=== PATIENT | female | born 1995 | race Caucasian/White ===

== ENCOUNTER 2018-08-12 01:11 | Emergency (ER) | payer BC, OTHER ==
[~2018-08-12] VITALS: Ht 175.3 cm; Wt 72.6 kg
--- OUTSIDE RECORDS SUMMARY | 2018-08-12 01:17 | XMS REPORT ---
Author Author BRYCE MARTINO Organization [employer] Address Unknown Phone Unavailable Care Team Providers Care Lockstitch Back Maker Name Role Phone BRYCE MARTINO CP Unavailable Allergies, Adverse Reactions, Alerts Substance Reaction Event Type N.K.D.A. Info Not Available Non Drug Allergy Problems Problem Type Condition Code Onset Dates Condition Status Problem Screening examination for pulmonary tuberculosis V74.1 Active Problem Viral warts, unspecified 078.10 Active Problem Health examination of defined subpopulation V70.5 Active Assessment Syncope, unspecified syncope type R55 Active Assessment Viral wart, unspecified B07.9 Active Medications Medication Code System Code Instructions Start Date End Date Status Dosage Ibuprofen [facility] [address]-97 200 MG Orally every 6 hrs 1 tablet as needed Tylenol PM Extra Strength [facility] [address]-68 500-25 MG Orally Once a day 1 tablet at bedtime as needed Procedures Procedure Coding System Code Date Office Visit, Est Pt., Level 3 CPT-4 90867 Jun 14, 2015 CRYOTHERAPY OF SKIN CPT-4 48685 Jun 14, 2015 ELECTROCARDIOGRAM, TRACING CPT-4 72195 Jun 14, 2015 Vital Signs Date/Time: Jun 14, 2015 Temperature 98.4 F Weight 149.6 lbs Height 69.4 in BMI 21.84 Index Blood Pressure Diastolic 60 mmHg Blood Pressure Systolic 112 mmHg Cardiac Monitoring Heart Rate 98 bpm Results Name Result Date Reference Range Unit Abnormality Flag CRYOTHERAPY OF SKIN Summary Purpose [employer] Submission
--- OUTSIDE RECORDS SUMMARY | 2018-08-12 01:17 | XMS REPORT ---
Author Author BRYCE MARTINO [facility] [employer] Address Unknown Phone Unavailable Care Team Providers Care Warehouse Associate Name Role Phone BRYCE MARTINO CP Unavailable Allergies, Adverse Reactions, Alerts Substance Reaction Event Type N.K.D.A. Info Not Available Non Drug Allergy Problems Problem Type Condition Code Onset Dates Condition Status Problem Screening examination for pulmonary tuberculosis V74.1 Active Problem Viral warts, unspecified 078.10 Active Problem Health examination of defined subpopulation V70.5 Active Assessment Pre-syncope 780.2 Active Assessment Daily headache 784.0 Active Medications Medication Code System Code Instructions Start Date End Date Status Dosage Tylenol PM Extra Strength [facility] [address]-94 500-25 MG Orally Once a day 1 tablet at bedtime as needed Ibuprofen [facility] [address]-06 200 MG Orally every 6 hrs 1 tablet as needed Procedures Procedure Coding System Code Date COMPREHEN METABOLIC PANEL CPT-4 10314 Apr 26, 2015 ASSAY THYROID STIM HORMONE CPT-4 28933 Apr 26, 2015 COMPLETE CBC W/AUTO DIFF WBC CPT-4 19901 Apr 26, 2015 Office Visit, Est Pt., Level 4 CPT-4 83836 Apr 26, 2015 VENIPUNCT, ROUTINE* CPT-4 29088 Apr 26, 2015 Vital Signs Date/Time: Apr 26, 2015 Temperature 99.2 F BMIPercentile 49.92 % Weight 148.7 lbs Height 69.4 in BMI 21.70 Index Blood Pressure Diastolic 78 mmHg Blood Pressure Systolic 118 mmHg Cardiac Monitoring Heart Rate 100 bpm Wt Percentile 78.7 % Ht Percentile 97.77 % Results Name Result Date Reference Range Unit Abnormality Flag CBC ROUTINE VENIPUNCTURE TSH ----TSH 1.210 [id number] 0.450-4.500 uIU/mL Summary Purpose eClinicalWorks Submission
--- OUTSIDE RECORDS SUMMARY | 2018-08-12 01:17 | XMS REPORT ---
Author Author SHANEANNELASHANDA Organization [facility] Address [address] [place] [address] Care Team Providers Care Waste Duster Name Role Phone LYNNLASHANDA Nayak Unavailable PROBLEMS Type Condition ICD9-CM Code LNF26-YU Code Onset Dates Condition Status SNOMED Code Problem Viral warts, unspecified 078.10 Active 58574123 Problem Health examination of defined subpopulation V70.5 Active 714307566 Problem Screening examination for pulmonary tuberculosis V74.1 Active 491951578 Problem Vasodepressor syncope R55 Active 657910063 ALLERGIES No Known Allergies ENCOUNTERS Encounter Location Date Diagnosis [place] [id number] [address] Dec, Common wart B07.8 [facility] [address] [id number] [place] [address]3054[address]236 Aug, Impacted cerumen of both ears H61.23 ; Viral wart on finger B07.9 and Cough R05 [facility] [id number] [place] [address] Jul, [facility] [id number] [place] [address]74[address] Jun, Sore throat J02.9 and Strep pharyngitis J02.0 [facility] [address] [address] Feb, Common wart B07.8 [facility] [id number] [place] [address] 12545- 7793 Dec, [facility] [id number] [place] [address] 88027- 4667 08 Oct, 2015 Syncope R55 ; Headache R51 and Dizziness R42 [place] [address] [id number] [place] [address] 99896- 9229 Aug, Syncope R55 [place] [address] [place] [id number] [place] [address] 80743- 0932 Aug, Syncopal episodes R55 [place] [address] [id number] [place] [address] 98710- 8990 May, Viral warts, unspecified type B07.9 [place] [address] [address] [id number] [place] [address] 57252- 8360 May, Syncope, unspecified syncope type R55 and Viral wart, unspecified B07.9 [place] [address] [id number] [place] [address] 17294- 0671 Mar, Pre-syncope 780.2 and Daily headache 784.0 [place] [address] [address] Jan, Viral warts, unspecified 078.10 [place] [address] [id number] [place] [address] 85669- 4561 Oct, [place] [address] [place] [id number] [place] [address] 80851- 7954 Oct, [place] [address] [place] [id number] [place] [address] 15460- 2661 Jan, [place] [address] [id number] [place] [address] 12758- 2390 Jan, [place] [address] [place] [id number] [place] [address] 86951- 1855 Dec, [place] [address] [address] [id number] [place] [address] 67879- 4046 Dec, IMMUNIZATIONS No Known Immunizations SOCIAL HISTORY Never Assessed REASON FOR VISIT Wart removal: left middle finger clark dahl, Had flu 2 weeks ago, ongoing cough and ear fullness reported PLAN OF CARE Activity Details Follow Up prn Reason: VITAL SIGNS Height 69.4 in 2017-09-24 Weight 160 lbs 2017-09-24 Temperature 97.1 degrees Fahrenheit 2017-09-24 Heart Rate 72 bpm 2017-09-24 Respiratory Rate 18 2017-09-24 BMI 23.35 kg/m2 2017-09-24 Blood pressure systolic 122 mmHg 2017-09-24 Blood pressure diastolic 60 mmHg 2017-09-24 MEDICATIONS Unknown Medications RESULTS No Results PROCEDURES Procedure Date Ordered Result Body Site EAR LAVAGE 2017-09-24 N/A CRYOTHERAPY OF SKIN 2017-09-24 N/A CRYOTHERAPY OF SKIN Sep 24, 2017 INSTRUCTIONS MEDICATIONS ADMINISTERED No Known Medications MEDICAL (GENERAL) HISTORY Type Description Date Medical History asthma-exercise induced, not formally dx'd Medical History Vasodepressor syncope Surgical History Left knee scope
--- OUTSIDE RECORDS SUMMARY | 2018-08-12 01:17 | XMS REPORT ---
Author Author SUMIT SAHNI Organization [facility] Address [address] [place] [address] Care Team Providers Care Jewel Oliving Machine Operator Name Role Phone SUMIT SAHNI Unavailable PROBLEMS Type Condition ICD9-CM Code NST50-MJ Code Onset Dates Condition Status SNOMED Code Problem Viral warts, unspecified 078.10 Active 77740817 Problem Health examination of defined subpopulation V70.5 Active 702281575 Problem Screening examination for pulmonary tuberculosis V74.1 Active 256449807 Problem Vasodepressor syncope R55 Active 212103515 ALLERGIES No Known Allergies ENCOUNTERS Encounter Location Date Diagnosis [address] [address] Dec, Common wart B07.8 [place] [id number] [place] [address]34[address] Aug, Impacted cerumen of both ears H61.23 ; Viral wart on finger B07.9 and Cough R05 [facility] [id number] [place] [address] Jul, [facility] [id number] [place] [address] 45139 -6464 Jun, Sore throat J02.9 and Strep pharyngitis J02.0 [place] [id number] [place] [address] 58862- 3660 Feb, Common wart B07.8 [place] [id number] [place] [address] 71199- 5931 Dec, [place] [id number] [place] [address] 58726- 9862 Oct, Syncope R55 ; Headache R51 and Dizziness R42 [place] [address] [address] Aug, Syncope R55 [facility] [address] [place] [id number] [place] [address] 37466- 1385 Aug, Syncopal episodes R55 [place] [address] [place] [id number] [place] [address] 76773- 7986 May, Viral warts, unspecified type B07.9 [place] [address] [place] [id number] [place] [address] 03504- 2565 May, Syncope, unspecified syncope type R55 and Viral wart, unspecified B07.9 [place] [address] [place] [id number] [place] [address] 08300- 2367 Mar, Pre-syncope 780.2 and Daily headache 784.0 [place] [address] [place] [id number] [place] [address] 42115- 8[address] Jan, Viral warts, unspecified 078.10 [place] [address] [place] [id number] [place] [address] 48343- 4644 Oct, [place] [address] [place] [id number] [place] [address] 18424- 7623 Oct, [place] [address] [place] [id number] [place] [address] 40481- 0850 Jan, [place] [address] [place] [id number] [place] [address] 33973- 1620 Jan, [place] [address] [place] [address] 09053- 7948 Dec, [place] [address] [place] [id number] [place] [address] 15461- 5936 Dec, IMMUNIZATIONS No Known Immunizations SOCIAL HISTORY Never Assessed REASON FOR VISIT Wart assessment, [facility] OF CARE VITAL SIGNS Height 69.4 in 2018-01-14 Weight 165.0 lbs 2018-01-14 Temperature 97.8 degrees Fahrenheit 2018-01-14 Heart Rate 76 bpm 2018-01-14 Respiratory Rate 18 2018-01-14 BMI 24.08 kg/m2 2018-01-14 Blood pressure systolic 106 mmHg 2018-01-14 Blood pressure diastolic 72 mmHg 2018-01-14 MEDICATIONS Unknown Medications RESULTS No Results PROCEDURES No Known procedures INSTRUCTIONS MEDICATIONS ADMINISTERED No Known Medications MEDICAL (GENERAL) HISTORY Type Description Date Medical History asthma-exercise induced, not formally dx'd Medical History Vasodepressor syncope Surgical History Left knee scope
--- OUTSIDE RECORDS SUMMARY | 2018-08-12 01:17 | XMS REPORT ---
Author Author BRYCE MARTINO Organization [employer] Address Unknown Phone Unavailable Care Team Providers Care Upper Shaper Name Role Phone BRYCE MARTINO CP Unavailable Allergies, Adverse Reactions, Alerts Substance Reaction Event Type N.K.D.A. Info Not Available Non Drug Allergy Problems Problem Type Condition Code Onset Dates Condition Status Problem Screening examination for pulmonary tuberculosis V74.1 Active Problem Viral warts, unspecified 078.10 Active Problem Health examination of defined subpopulation V70.5 Active Assessment Viral warts, unspecified type B07.9 Active Medications Medication Code System Code Instructions Start Date End Date Status Dosage Tylenol PM Extra Strength [facility] [address]-18 500-25 MG Orally Once a day 1 tablet at bedtime as needed Ibuprofen [facility] [address]-03 200 MG Orally every 6 hrs 1 tablet as needed Procedures Procedure Coding System Code Date No Charge CPT-4 33130 Jun 23, 2015 CRYOTHERAPY OF SKIN CPT-4 36507 Jun 23, 2015 Vital Signs Date/Time: Jun 23, 2015 Temperature 98.1 F Weight 149.8 lbs Height 69.4 in BMI 21.86 Index Blood Pressure Diastolic 66 mmHg Blood Pressure Systolic 108 mmHg Cardiac Monitoring Heart Rate 88 bpm Results Name Result Date Reference Range Unit Abnormality Flag CRYOTHERAPY OF SKIN Summary Purpose eClinicalWorks Submission
--- OUTSIDE RECORDS SUMMARY | 2018-08-12 01:17 | XMS REPORT ---
Author Author BOB UNGER Organization [facility] Address [address] [place] [address] Care Team Providers Care Knot Tier Name Role Phone BOB UNGER Unavailable PROBLEMS Type Condition ICD9-CM Code IIK93-HP Code Onset Dates Condition Status SNOMED Code Problem Vasodepressor syncope R55 Active 286847709 ALLERGIES No Known Allergies ENCOUNTERS Encounter Location Date Diagnosis [place] [address] [address] Jun, [place] [address] [address] May, Encounter for weight management Z76.89 [place] [address] [address] Dec, Common wart B07.8 [place] [address] [address] Aug, Impacted cerumen of both ears H61.23 ; Viral wart on finger B07.9 and Cough R05 [facility] [id number] [place] [address] Jul, [facility] [id number] [place] [address] 94336 [address]3295 Jun, Sore throat J02.9 and Strep pharyngitis J02.0 [place] [address] [address]- [address] Feb, Common wart B07.8 [place] [address] [place] [id number] [place] [address] 56225- 1312 Dec, [place] [address] [place] [address] [place] [address] 08 Oct, 2015 Syncope R55 ; Headache R51 and Dizziness R42 [facility] [address] [address] Aug, Syncope R55 [facility] [address] [id number] [place] [address] 38885- 2606 Aug, Syncopal episodes R55 [facility] [address] [address] May, Viral warts, unspecified type B07.9 [place] [address] 398[address]- [address] May, Syncope, unspecified syncope type R55 and Viral wart, unspecified B07.9 [facility] [address] [place] [id number] [place] [address] 23306- 7854 Mar, Pre-syncope 780.2 and Daily headache 784.0 [facility] [address] [place] [id number] [place] [address] 64140- 7382 Jan, Viral warts, unspecified 078.10 [facility] [address] [place] [id number] [place] [address] 62466- 5604 Oct, [facility] [address] [place] [id number] [place] [address] 816[address]- 7900 Oct, [facility] [address] [place] [id number] [place] [address]- 2604 Jan, [facility] [id number] [place] [address] 44822- 5431 Jan, [facility] [id number] [place] [address] 44506- 1511 Dec, [facility] [address] [place] [id number] [place] [address] 06047- 7662 Dec, IMMUNIZATIONS No Known Immunizations SOCIAL HISTORY Never Assessed REASON FOR VISIT weight concerns-LAUREN croft, pt has some concerns about why she is gaining weight so much and fast PLAN OF CARE Activity Details Follow Up prn Reason: VITAL SIGNS Height 69.4 in 2018-06-27 Weight 168.7 lbs 2018-06-27 Temperature 98.3 degrees Fahrenheit 2018-06-27 Heart Rate 114 bpm 2018-06-27 Respiratory Rate 18 2018-06-27 Oximetry on room air:100 % 2018-06-27 BMI 24.62 kg/m2 2018-06-27 Blood pressure systolic 124 mmHg 2018-06-27 Blood pressure diastolic 80 mmHg 2018-06-27 MEDICATIONS Medication Instructions Dosage Frequency Start Date End Date Duration Status Phentermine HCl 30 MG Orally Once a day 1 capsule 24h May, 28 days Active RESULTS No Results PROCEDURES No Known procedures INSTRUCTIONS MEDICATIONS ADMINISTERED No Known Medications MEDICAL (GENERAL) HISTORY Type Description Date Medical History asthma-exercise induced, not formally dx'd Medical History Vasodepressor syncope Surgical History Left knee scope Hospitalization History No Hospitalization history information
--- OUTSIDE RECORDS SUMMARY | 2018-08-12 01:17 | XMS REPORT ---
Author SUMIT Anderson Organization [employer] Address Unknown Phone Unavailable Care Team Providers Care Hazardous Materials Waste Technician Name Role Phone SUMIT SAHNI CP Unavailable Allergies, Adverse Reactions, Alerts Substance Reaction Event Type N.K.D.A. Info Not Available Non Drug Allergy Problems Problem Type Condition Code Onset Dates Condition Status Problem Screening examination for pulmonary tuberculosis V74.1 Active Problem Viral warts, unspecified 078.10 Active Problem Health examination of defined subpopulation V70.5 Active Problem Vasodepressor syncope R55 Active Assessment Common wart B07.8 Active Medications No Known Medications Procedures Procedure Coding System Code Date Office Visit, Est Pt., Level 2 CPT-4 02922 Mar 07, 2016 DESTRUCT LESION, 1-14 CPT-4 47196 Mar 07, 2016 Vital Signs Date/Time: Mar 07, 2016 Cardiac Monitoring Heart Rate 88 bpm Weight 152.3 lbs Height 69.4 in BMI 22.23 Index Blood Pressure Diastolic 68 mmHg Blood Pressure Systolic 112 mmHg Results No Known Results Summary Purpose eClinicalWorks Submission
--- OUTSIDE RECORDS SUMMARY | 2018-08-12 01:17 | XMS REPORT ---
Author Author CARLOS WILKES [facility] Address [address] [place] [address] Care Team Providers Care Cosmetic Counselor Name Role Phone CHUNG CARLOS Unavailable PROBLEMS Type Condition ICD9-CM Code HUE94-AE Code Onset Dates Condition Status SNOMED Code Problem Viral warts, unspecified 078.10 Active 58606161 Problem Health examination of defined subpopulation V70.5 Active 663898776 Problem Screening examination for pulmonary tuberculosis V74.1 Active 013242005 Problem Vasodepressor syncope R55 Active 819916699 ALLERGIES No Known Allergies ENCOUNTERS Encounter Location Date Diagnosis [address] [address] Dec, Common wart B07.8 [place] [id number] [place] [address]37- [address]12 Aug, Impacted cerumen of both ears H61.23 ; Viral wart on finger B07.9 and Cough R05 [facility] [id number] [place] [address]181 -[phone] Jul, [facility] [address] [id number] [place] [address] 59003 -8314 Jun, Sore throat J02.9 and Strep pharyngitis J02.0 [facility] [address] [place] [id number] [place] [address] 62628- 1836 Feb, Common wart B07.8 [place] [address] [place] [id number] [place] [address] 86653- 3209 Dec, [place] [address] [place] [id number] [place] [address] 29198- 6133 Oct, Syncope R55 ; Headache R51 and Dizziness R42 [place] [address] [place] [address] 50561- 7609 Aug, Syncope R55 [place] [address] [place] [id number] [place] [address] 36056- 2361 Aug, Syncopal episodes R55 [place] [address] [place] [id number] [place] [address] 44046- 0653 May, Viral warts, unspecified type B07.9 [place] [address] [place] [id number] [place] [address] 66436- 3845 May, Syncope, unspecified syncope type R55 and Viral wart, unspecified B07.9 [place] [address] [place] [id number] [place] [address] 84409- 2105 Mar, Pre-syncope 780.2 and Daily headache 784.0 [place] [address] [place] [id number] [place] [address] 21628- 9518 Jan, Viral warts, unspecified 078.10 [place] [address] [place] [id number] [place] [address] 73166- 0798 Oct, [place] [address] [place] [id number] [place] [address] 73620- 3614 Oct, [place] [address] [place] [id number] [place] [address] 75402- 9582 Jan, [place] [address] [place] [id number] [place] [address] 68767- 7276 Jan, [place] [address] [place] [address] 44454- 3810 Dec, [place] [address] [place] [id number] [place] [address] 82141- 9785 Dec, IMMUNIZATIONS No Known Immunizations SOCIAL HISTORY Never Assessed REASON FOR VISIT flu symptoms- cough and chills for a few days Dominique, Instructed to alternate tyl/ibu and increase fluids PLAN OF CARE VITAL SIGNS Height 69.4 in 2017-08-21 Weight 156.6 lbs 2017-08-21 Temperature 98.6 degrees Fahrenheit 2017-08-21 Heart Rate 74 bpm 2017-08-21 Respiratory Rate 18 2017-08-21 BMI 22.86 kg/m2 2017-08-21 Blood pressure systolic 126 mmHg 2017-08-21 Blood pressure diastolic 80 mmHg 2017-08-21 MEDICATIONS Unknown Medications RESULTS No Results PROCEDURES No Known procedures INSTRUCTIONS MEDICATIONS ADMINISTERED No Known Medications MEDICAL (GENERAL) HISTORY Type Description Date Medical History asthma-exercise induced, not formally dx'd Medical History Vasodepressor syncope Surgical History Left knee scope
--- OUTSIDE RECORDS SUMMARY | 2018-08-12 01:18 | XMS REPORT | Continuity of Care Document ---
Author Author [facility] Address Unknown Phone Unavailable Allergies Active Description Code Type Severity Reaction Onset Reported/Identified Relationship to Patient Clinical Status Yes No Known Drug Allergies [id number] Drug Allergy Unknown N/A 10/10/2010 Medications There is no data. Problems Date Dx Coded Attending Type Code Diagnosis Diagnosed By 02/18/2009 CARLOS WILKES DO 493.90 ASTHMA EXERCISE-INDUCED 02/18/2009 CARLOS WILKES DO 706.3 SEBORRHEA 02/18/2009 CARLOS WILKES DO V20.2 visit for: well child visit 02/18/2009 CARLOS WILKES DO 493.90 ASTHMA EXERCISE-INDUCED 02/18/2009 CARLOS WILKES DO 706.3 SEBORRHEA 02/18/2009 CARLOS WILKES DO V20.2 visit for: well child visit 10/10/2010 Ot 717.6 LOOSE BODY IN KNEE 01/05/2014 CARLOS WILKES DO V70.5 HEALTH EXAMINATION OF DEFINED SUBPOPULATIONS 01/05/2014 CARLOS WILKES DO V74.1 TB SCREENING 01/05/2014 CARLOS WILKES DO V70.5 HEALTH EXAMINATION OF DEFINED SUBPOPULATIONS 01/05/2014 CARLOS WILKES DO V74.1 TB SCREENING 02/24/2014 CARLOS WILKES DO 078.10 VIRAL WARTS UNSPECIFIED 07/16/2015 Ot G44.52 09/28/2015 Ot 719.06 09/28/2015 Ot 717.6 09/28/2015 Ot V72.83 09/28/2015 Ot V74.8 09/28/2015 Ot 786.2 09/28/2015 Ot G44.52 11/03/2015 Ot G44.52 11/11/2015 YASMIN RIVAS MD Ot R42 11/11/2015 YASMIN RIVAS MD Ot R55 11/12/2015 YASMIN RIVAS MD Ot R42 DIZZINESS AND GIDDINESS 11/12/2015 YASMIN RIVAS MD Ot R55 SYNCOPE AND COLLAPSE 12/01/2015 YASMIN RIVAS MD Ot R42 DIZZINESS AND GIDDINESS 12/01/2015 YASMIN RIVAS MD Ot R55 SYNCOPE AND COLLAPSE 12/03/2015 Ot 719.06 JOINT EFFUSION-L/LEG 12/03/2015 Ot 717.6 LOOSE BODY IN KNEE 12/03/2015 Ot V72.83 EXAM PRE- OPERATIVE NEC 12/03/2015 Ot V74.8 SCREEN- BACTERIAL DIS NEC 12/03/2015 Ot 786.2 COUGH 12/03/2015 Ot G44.52 NEW DAILY PERSISTENT HEADACHE (NDPH) 12/03/2015 BRYCE MARTINO Ot R55 SYNCOPE AND COLLAPSE 12/03/2015 YASMIN RIVAS MD Ot R42 DIZZINESS AND GIDDINESS 12/03/2015 YASMIN RIVAS MD Ot R55 SYNCOPE AND COLLAPSE 12/03/2015 YASMIN RIVAS MD Ot R42 DIZZINESS AND GIDDINESS 12/03/2015 YASMIN RIVAS MD Ot R55 SYNCOPE AND COLLAPSE 12/03/2015 YASMIN RIVAS MD Ot R42 DIZZINESS AND GIDDINESS 12/03/2015 YASMIN RIVAS MD Ot R55 SYNCOPE AND COLLAPSE 12/03/2015 Ot 719.06 JOINT EFFUSION-L/LEG 12/03/2015 Ot 717.6 LOOSE BODY IN KNEE 12/03/2015 Ot V72.83 EXAM PRE- OPERATIVE NEC 12/03/2015 Ot V74.8 SCREEN- BACTERIAL DIS NEC 12/03/2015 Ot 786.2 COUGH 12/03/2015 Ot G44.52 NEW DAILY PERSISTENT HEADACHE (NDPH) 12/03/2015 BRYCE MARTINO Ot R55 SYNCOPE AND COLLAPSE 12/03/2015 YASMIN RIVAS MD Ot R42 DIZZINESS AND GIDDINESS 12/03/2015 YASMIN RIVAS MD Ot R55 SYNCOPE AND COLLAPSE 12/03/2015 YASMIN RIVAS MD Ot R42 DIZZINESS AND GIDDINESS 12/03/2015 YASMIN RIVAS MD Ot R55 SYNCOPE AND COLLAPSE 12/03/2015 BRYCE MARTINO Ot R55 SYNCOPE AND COLLAPSE 12/09/2015 YASMIN RIVAS MD Ot R42 DIZZINESS AND GIDDINESS 12/09/2015 YASMIN RIVAS MD Ot R55 SYNCOPE AND COLLAPSE 12/29/2015 BRYCE MARTINO Ot R55 SYNCOPE AND COLLAPSE 01/11/2016 YASMIN RIVAS MD Ot R42 DIZZINESS AND GIDDINESS 01/11/2016 YASMIN RIVAS MD Ot R55 SYNCOPE AND COLLAPSE Procedures Code [place] [address] TB TEST INTRADERMAL 01/05/2014 60662 WART DESTRUCT 1-14 (CRYO) 02/24/2014 Results There is no data. Encounters ACCT No. Visit Date/Time Discharge Status Pt. Type Provider Facility Loc./Unit Complaint [id number] 02/24/2014 11:33:00 02/24/2014 23:59:59 CLS Outpatient CARLOS WILKES DO [id number] 01/05/2014 17:11:00 01/05/2014 23:59:59 CLS Outpatient CARLOS WILKES DO [id number] 12/30/2015 09:00:00 12/30/2015 23:59:59 CLS Preadmit BRYCE MARTINO Via [facility] CARD [id number] 09/30/2015 11:58:00 12/29/2015 00:01:00 DIS Outpatient BRYCE MARTINO [facility] CARD [id number] 11/29/2015 10:30:00 11/29/2015 23:59:59 CLS Outpatient YASMIN RIVAS MD [facility] CARD [id number] 11/10/2015 07:50:00 11/10/2015 23:59:59 CLS Outpatient YASMIN RIVAS MD Via [facility] CARD [id number] 05/06/2015 15:30:00 Document Registration [id number] 12/01/2011 15:23:00 Document Registration [id number] 10/10/2010 05:47:00 Document Registration [id number] 10/04/2010 15:54:00 Document Registration [id number] 09/26/2010 16:22:00 Document Registration [id number] 06/27/2018 15:40:00 06/27/2018 23:59:59 CLS Outpatient BRYCE MARTINO APRN [facility]
--- OUTSIDE RECORDS SUMMARY | 2018-08-12 01:18 | XMS REPORT ---
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 Name Role Phone LYNNLASHANDA Nayak Unavailable PROBLEMS Type Condition ICD9-CM Code OYB14-PI Code Onset Dates Condition Status SNOMED Code Problem Viral warts, unspecified 078.10 Active 64836941 Problem Health examination of defined subpopulation V70.5 Active 716330103 Problem Screening examination for pulmonary tuberculosis V74.1 Active 489869812 Problem Vasodepressor syncope R55 Active [id number] ALLERGIES No Known Allergies ENCOUNTERS Encounter Location Date Diagnosis [place] [address] [address] Dec, [place] [address] [place] [id number] [place] [phone] Aug, Impacted cerumen of both ears H61.23 ; Viral wart on finger B07.9 and Cough R05 [facility] [address] [place] [id number] [place] [phone] Jul, [facility] [address] [place] [id number] [place] [phone] Jun, Sore throat J02.9 and Strep pharyngitis J02.0 [place] [address] [place] [id number] [place] [phone] Feb, Common wart B07.8 [place] [address] [address] 14 Dec, 2015 [place] [address] [address] Oct, Syncope R55 ; Headache R51 and Dizziness R42 [place] [address] [place] [id number] [place] [phone] Aug, Syncope R55 [facility] [address] [place] [id number] [place] [phone] Aug, Syncopal episodes R55 [place] [address] [place] [id number] [place] [address] May, Viral warts, unspecified type B07.9 [place] [address] [place] [id number] [place] [phone] May, Syncope, unspecified syncope type R55 and Viral wart, unspecified B07.9 [place] [address] [place] [id number] [place] [address] Mar, Pre-syncope 780.2 and Daily headache 784.0 [place] [address] [place] [id number] [place] [address] Jan, Viral warts, unspecified 078.10 [place] [address] [place] [id number] [place] [phone] Oct, [place] [address] [place] [id number] [place] [phone] Oct, [place] [address] [place] [id number] [place] [phone] Jan, [place] [address] [place] [id number] [place] [phone] Jan, [place] [address] [place] [id number] [place] [phone] Dec, [place] [address] [place] [id number] [place] [phone] Dec, IMMUNIZATIONS No Known Immunizations SOCIAL HISTORY Never Assessed REASON FOR VISIT sore throat and cough for 2 days. just found out her boyfriend has mono. [email or web address] PLAN OF CARE Activity Details Follow Up prn Reason: VITAL SIGNS Height 69.4 in 2017-07-09 Weight 156.0 lbs 2017-07-09 Temperature 98.3 degrees Fahrenheit 2017-07-09 Heart Rate 84 bpm 2017-07-09 Respiratory Rate 20 2017-07-09 Oximetry on room air:99 % 2017-07-09 BMI 22.77 kg/m2 2017-07-09 Blood pressure systolic 110 mmHg 2017-07-09 Blood pressure diastolic 64 mmHg 2017-07-09 MEDICATIONS Medication Instructions Dosage Frequency Start Date End Date Duration Status Amoxicillin 500 mg Orally every 12 hrs 1 capsule 12h Jun, Jun, 10 day(s) Active RESULTS Name Result Date Reference Range STREP A (IN HOUSE) 2017-07-09 STREP A positive Control + Lot # [id number] Exp date 06 28 2018 MONO TEST (IN HOUSE) 2017-08-04 RESULTS negative Control + Lot # [id number] Exp date 2018 01 PROCEDURES Procedure Date Ordered Result Body Site MEASURE BLOOD OXYGEN LEVEL Jul 09, 2017 STREP A ASSAY W/OPTIC Jul 09, 2017 HETEROPHILE ANTIBODIES Jul 09, 2017 INSTRUCTIONS MEDICATIONS ADMINISTERED No Known Medications MEDICAL (GENERAL) HISTORY Type Description Date Medical History asthma-exercise induced, not formally dx'd Medical History Vasodepressor syncope Surgical History Left knee scope
[2018-08-12] MEDS ORDERED: NS IV 1000 ML 1,000 ML IV STA (01:43)
[2018-08-12] MEDS ORDERED: ONDANSETRON 4 MG/2 ML (SDV) Z0FRAN IVP ONE (01:45)
[2018-08-12 02:35] LABS: BASOPHILS % (AUTO) 0 % (0-10); EOSINOPHILS % (AUTO) 0 % (0-10); HEMATOCRIT 36 % (35-52); HEMOGLOBIN 12.6 G/DL (11.5-16.0); LYMPHOCYTES # (AUTO) 0.5 X 10^3 (1.0-4.0); LYMPHOCYTES % (AUTO) 4 % (12-44); MEAN CORPUSCULAR HEMOGLOBIN 31 PG (25-34); MEAN CORPUSCULAR HGB CONC 36 G/DL (32-36); MEAN CORPUSCULAR VOLUME 89 FL (80-99); MEAN PLATELET VOLUME 9.9 FL (7.4-10.4); MONOCYTES # (AUTO) 0.6 X 10^3 (0.0-1.0); MONOCYTES % (AUTO) 4 % (0-12); NEUTROPHILS # (AUTO) 12.4 X 10^3 (1.8-7.8); NEUTROPHILS % (AUTO) 92 % (42-75); PLATELET COUNT 191 10^3/uL (130-400); RED BLOOD COUNT 4.01 10^6/uL (4.35-5.85); RED CELL DISTRIBUTION WIDTH 12.1 % (10.0-14.5); WHITE BLOOD COUNT 13.5 10^3/uL (4.3-11.0)
[2018-08-12 02:55] LABS: ALANINE AMINOTRANSFERASE 8 U/L (0-55); ALBUMIN 4.3 GM/DL (3.2-4.5); ALKALINE PHOSPHATASE 32 U/L (40-136); BILIRUBIN,TOTAL 0.4 MG/DL (0.1-1.0); BUN/CREATININE RATIO 17; CALCIUM 8.9 MG/DL (8.5-10.1); CARBON DIOXIDE 21 MMOL/L (21-32); CHLORIDE 104 MMOL/L (98-107); GFR ESTIMATED > 60; GLUCOSE 104 MG/DL (70-105); SODIUM 137 MMOL/L (135-145)
[2018-08-12 02:56] LABS: BAND NEUTROPHILS 6 %; BASOPHILS % (MANUAL) 1 %; LYMPHOCYTES % (MANUAL) 4 %; MONOCYTES % (MANUAL) 2 %; NEUTROPHILS % (MANUAL) 87 %; RBC MORPH NORMAL
[2018-08-12 03:08] LABS: BILIRUBIN,URINE NEGATIVE (NEGATIVE); CLARITY,URINE CLEAR; COLOR,URINE YELLOW; GLUCOSE, URINE (UA) NEGATIVE (NEGATIVE); KETONES,URINE 1+ (NEGATIVE); LEUKOCYTE ESTERASE ,URINE 2+ (NEGATIVE); NITRITE,URINE NEGATIVE (NEGATIVE); PH,URINE 6 (5-9); PROTEIN,URINE 2+ (NEGATIVE); UROBILINOGEN,URINE NORMAL (NORMAL)
[2018-08-12 03:19] LABS: BACTERIA,URINE FEW /HPF; SQUAMOUS EPITHELIAL CELL,UR >50 /HPF; WBC,URINE 0-2 /HPF
--- NOTE | 2018-08-12 03:19 | ED GI ---
General Chief Complaint: Abdominal/GI Problems Stated Complaint: VOMITING,9 WKS Nursing Triage Note: PT AMB TO ROOM #7 W/O DIFFICULTY. A&OX4. C/O N/V SINCE APPROX 202908/11/17. PT REPORTS APPROX X4 EPISODES OF EMESIS AND X2 SYNCOPAL EPSIODES. DENIES HITTING HEAD. PT REPORTS AFTER VOMITING SHE WOKE UP ON THE FLOOR. DENIES ANY PAIN OR DISCOMFORT. PT REPORTS SHE IS APPROX 9WKS . Sepsis Screen: No Definite Risk Source of Information: Patient Exam Limitations: No Limitations History of Present Illness Date Seen by Provider: Aug 12, 2018 Time Seen by Provider: 02:50 Initial Comments Here with report of nausea and vomiting multiple times since about 830 p.m. last night. Her mother also has similar illness. Patient is approximately 9 weeks by last menstrual period of June 13. She has not had formal ultrasound or initial OB visit yet. That is scheduled for later this week. She has had some nausea and vomiting with the but not like this. She states that she passed out twice during these vomiting episodes. She does have history that previously and has workup from cardiology that did not show anything significant including tilt table. Denies any injury from this. Overall doing a little better now. Denies fevers or diarrhea. Denies dysuria. Timing/Duration: 4-6 Hours Severity/Quality: Moderate, Cramping Location: Generalized Abdomen Radiation: No Radiation Modifying Factors: Worsens With Eating Associated Symptoms: No Back Pain, No Chest Pain, No Fever/Chills; Nausea/ Vomiting, Syncope; No Weakness Allergies and Home Medications Allergies Coded Allergies: No Known Drug Allergies (Unverified , 10/10/10) Patient Home Medication List Home Medication List Reviewed: Yes Review of Systems Review of Systems Constitutional: see HPI; No chills, No fever EENTM: No Symptoms Reported Respiratory: No Symptoms Reported Cardiovascular: See HPI; Denies Chest Pain, Denies Irregular Heart Rate, Denies Lightheadedness; Syncope Gastrointestinal: Denies Abdominal Pain; Nausea, Vomiting Genitourinary: No Symptoms Reported Musculoskeletal: no symptoms reported Psychiatric/Neurological: See HPI Past Lpocrks-Pcwpcy-Hiwoqq Hx Past Med/Social Hx: Reviewed Nursing Past Med/Soc Hx Patient Social History Alcohol Use: Denies Use Recreational Drug Use: No Smoking Status: Never a Smoker 2nd Hand Smoke Exposure: No Recent Foreign Travel: No Contact w/Someone Who Travel: No Recent Infectious Disease Expo: No Recent Hopitalizations: No Physical Abuse: No Sexual Abuse: No Seasonal Allergies Seasonal Allergies: No Past Medical History Surgeries: Yes Orthopedic Respiratory: No Cardiac: Yes Syncope Neurological: No Hx : 1 Reproductive Disorders: No Sexually Transmitted Disease: No Genitourinary: No Gastrointestinal: No Musculoskeletal: No Endocrine: No HEENT: No Cancer: No Psychosocial: No Integumentary: No Blood Disorders: No Family Medical History Reviewed Nursing Family Hx Physical Exam Vital Signs Vital Signs - First Documented 08/12/18 02:14 Temp 98.8 Pulse 87 Resp 18 B/P (MAP) 102/69 (80) Pulse Ox 100 O2 Delivery Room Air Capillary Refill : Less Than 3 Seconds Height/Weight/BMI Height: 5'9.00" Weight: 160lbs. 0.0oz. 72.875438wz; 22.5 BMI Method:Stated General Appearance: WD/WN, no apparent distress Neck: full range of motion, supple Respiratory: lungs clear, normal breath sounds Cardiovascular: regular rate, rhythm, no murmur Gastrointestinal: non tender, soft Extremities: non-tender, normal inspection, no pedal edema, no calf tenderness Back: normal inspection, no CVA tenderness, no vertebral tenderness Neurologic/Psychiatric: alert, oriented x 3 Skin: normal color, warm/dry Progress/Results/Core Measures Results/Orders Lab Results Laboratory Tests Test 08/12/18 02:20 08/12/18 03:00 Range/Units White Blood Count 13.5 H 4.3-11.0 10^3/uL Red Blood Count 4.01 L 4.35-5.85 10^6/uL Hemoglobin 12.6 11.5-16.0 G/DL Hematocrit 36 35-52 % Mean Corpuscular Volume 89 80-99 FL Mean Corpuscular Hemoglobin 31 25-34 PG Mean Corpuscular Hemoglobin Concent 36 32-36 G/DL Red Cell Distribution Width 12.1 10.0-14.5 % Platelet Count 191 130-400 10^3/uL Mean Platelet Volume 9.9 7.4-10.4 FL Neutrophils (%) (Auto) 92 H 42-75 % Lymphocytes (%) (Auto) 4 L 12-44 % Monocytes (%) (Auto) 4 0-12 % Eosinophils (%) (Auto) 0 0-10 % Basophils (%) (Auto) 0 0-10 % Neutrophils # (Auto) 12.4 H 1.8-7.8 X 10^3 Lymphocytes # (Auto) 0.5 L 1.0-4.0 X 10^3 Monocytes # (Auto) 0.6 0.0-1.0 X 10^3 Eosinophils # (Auto) 0.0 0.0-0.3 10^3/uL Basophils # (Auto) 0.0 0.0-0.1 10^3/uL Neutrophils % (Manual) 87 % Lymphocytes % (Manual) 4 % Monocytes % (Manual) 2 % Basophils % (Manual) 1 % Band Neutrophils 6 % Blood Morphology Comment NORMAL Sodium Level 137 135-145 MMOL/L Potassium Level 4.0 3.6-5.0 MMOL/L Chloride Level 104 98-107 MMOL/L Carbon Dioxide Level 21 21-32 MMOL/L Anion Gap 12 5-14 MMOL/L Blood Urea Nitrogen 12 7-18 MG/DL Creatinine 0.70 0.60-1.30 MG/DL Estimat Glomerular Filtration Rate > 60 BUN/Creatinine Ratio 17 Glucose Level 104 70-105 MG/DL Calcium Level 8.9 8.5-10.1 MG/DL Corrected Calcium 8.7 8.5-10.1 MG/DL Total Bilirubin 0.4 0.1-1.0 MG/DL Aspartate Amino Transf (AST/SGOT) 12 5-34 U/L Alanine Aminotransferase (ALT/SGPT) 8 0-55 U/L Alkaline Phosphatase 32 L 40-136 U/L Total Protein 7.0 6.4-8.2 GM/DL Albumin 4.3 3.2-4.5 GM/DL Urine Color YELLOW Urine Clarity CLEAR Urine pH 6 5-9 Urine Specific [place] 1.015 L 1.016-1.022 Urine Protein 2+ H NEGATIVE Urine Glucose (UA) NEGATIVE NEGATIVE Urine Ketones 1+ H NEGATIVE Urine Nitrite NEGATIVE NEGATIVE Urine Bilirubin NEGATIVE NEGATIVE Urine Urobilinogen NORMAL NORMAL MG/DL Urine Leukocyte Esterase 2+ H NEGATIVE Urine RBC (Auto) NEGATIVE NEGATIVE Urine RBC NONE /HPF Urine WBC 0-2 /HPF Urine Squamous Epithelial Cells >50 H /HPF Urine Crystals NONE /LPF Urine Bacteria FEW H /HPF Urine Casts NONE /LPF Urine Mucus MODERATE H /LPF Urine Culture Indicated NO My Orders Orders - [place],ROB D MD Ua Culture If Indicated (08/12/18 01:43) Cbc With Automated Diff (08/12/18 01:43) Comprehensive Metabolic Panel (08/12/18 01:43) Ondansetron Injection (Zofran Injectio (08/12/18 01:45) Ns Iv 1000 Ml (Sodium Chloride 0.9%) (08/12/18 01:43) Saline Lock/Iv-Start (08/12/18 01:43) Manual Differential (08/12/18 02:20) D5 Ns 1000 Ml Iv Solution (Dextrose 5%/0 (08/12/18 03:41) Medications Given in ED Current Medications Medications Dose Ordered Sig/Ina Route Start Time Stop Time Status Last Admin Dose Admin Ondansetron HCl 4 mg ONCE ONCE IVP 08/12/18 01:45 08/12/18 01:46 DC 08/12/18 02:24 4 MG Vital Signs/I&O 08/12/18 02:14 Temp 98.8 Pulse 87 Resp 18 B/P (MAP) 102/69 (80) Pulse Ox 100 O2 Delivery Room Air Blood Pressure Mean: 80 Progress Progress Note : Progress Note Seen and evaluated. IV, labs, UA, normal saline 1 L bolus and Zofran 4 mg IV ordered. Monitor patient. Bedside ultrasound performed and noted positive heart tones at rate 165+. 8-6/7 by crown-rump length. UA shows ketones. D5NS 1 L bolus ordered. Monitor patient. 0452: Done much better. Discharged home with return precautions. Patient verbalize understanding instructions and agreement with plan Departure Impression Primary Impression: Nausea and vomiting during Disposition: 01 HOME, SELF-CARE Condition: Improved Departure-Patient Inst. Decision time for Depature: 04:53 Referrals: NO,LOCAL PHYSICIAN (PCP) Primary Care Physician TADEO GRAHAM DO Patient Instructions: Nausea and Vomiting of (DC) Add. Discharge Instructions: All discharge instructions reviewed with patient and/or family. Voiced understanding. Clear liquid or light diet for the next 24 hours and then advance as tolerated. Drink plenty of fluids with taking small amounts frequently. Take medications as directed. Follow-up with your OB doctor this week as scheduled. Return for worse pain, fever, vomiting, weakness, rhythm problems or other concerns as needed. Scripts Promethazine HCl (Promethazine Tablet) 25 Mg Tablet 25 MG PO Q8H PRN for NAUSEA/VOMITING, #14 TAB 0 Refills Prov: ROB GALLEGO MD 08/12/18 Copy Copies To 1: TADEO GRAHAM TIMOTHY D MD Aug 12, 2018 03:19
[2018-08-12] MEDS ORDERED: D5 NS 1000 ML IV SOLUTION 1,000 ML IV STA (03:41)
[2018-08-12] MEDS ORDERED: PROM25TA14 PO (04:55)
[2018-08-12 05:15] VITALS: BP 93/53
== END 2018-08-12 05:15 | disposition home or self-care (01) ==
LOC: EDUNIT# 01:11 → ER 01:13
DX: O21.9 Vomiting of pregnancy, unspecified (principal); Z3A.09 9 weeks gestation of pregnancy; Z98.890 Other specified postprocedural states
CPT/HCPCS: 36415; 80053; 81000; 85007; 85027

== ENCOUNTER → 2018-11-25 | Outpatient (CLI) | payer BC ==
[~2018-11-25] MED LIST: GADOBUTROL 7.5 MMOL/7.5 ML (GADAVIST) VIAL IV ONE; PROM25TA14 PO
--- NOTE | 2018-11-25 10:10 | Diagnostic Imaging Report ---
PROCEDURE: MR imaging of the brain with and without contrast. TECHNIQUE: Multiplanar, multisequence MR imaging of the brain was performed with and without contrast. INDICATION: Continuous headache. FINDINGS: The ventricles and sulci are within normal limits. There is no hydrocephalus. There is no midline shift. There is no intracranial mass, hemorrhage or extra-axial fluid collection. There are no areas of diffusion restriction appreciated to suggest an acute CVA. There are no abnormal areas of contrast enhancement. The frontal ethmoid, sphenoid, and maxillary sinuses are clear. Mastoid air cells are clear. The globes and intraorbital structures are unremarkable. The central arterial and dural venous sinus flow voids are preserved. The midline structures are normal in appearance. IMPRESSION: Unremarkable MRI brain. Dictated by: Dictated on workstation # [id number]
== END ==
LOC: RAD 08:48
PROVIDERS: ATTEND Nurse Practitioner Community Health
DX: G44.85 Primary stabbing headache (principal)
CPT/HCPCS: 70553

== ENCOUNTER → 2020-08-13 | Outpatient (CLI) | payer BC ==
[~2020-08-13] MED LIST changes: -GADOBUTROL 7.5 MMOL/7.5 ML (GADAVIST) VIAL IV ONE
--- NOTE | 2020-08-13 16:24 | Diagnostic Imaging Report ---
INDICATION: Twin gestation. anatomy survey. TECHNIQUE: Multiple real-time grayscale images were obtained over the gravid uterus. COMPARISON: None FINDINGS: Twin gestation is present. There appears to be a membrane between the gestations and 2 separate placentas. The placentas are both located along the anterior and fundal aspect of the uterus. Fetus A is considered in cephalic and oriented to maternal left. Fetus B is in breech presentation and to maternal right. Fetus A Biometrical measurements are as follows: Biparietal 4.92 cm, age 21 weeks 0 days. Head circumference 17.66 cm, age 20 weeks 2 days. Abdominal circumference 14.79 cm, age 20 weeks 1 days. Femur length 3.54 cm, age 21 weeks 1 days. Sonographic estimate age: 20 weeks 5 days. Sonographic estimated date of delivery: 12/26/2020. Estimated Weight: 361 gm (+/- 53 gm). LMP percentile: 61%. heart rate: 147 beats per minute. number: 1 of 2. A anatomy that is visualized and normal: Stomach, umbilical cord insertion, spine, four-chamber heart, urinary bladder and three-vessel cord. The intracranial contents, face and kidneys are not well seen. Fetus B Biometrical measurements are as follows: Biparietal 4.88 cm, age 20 weeks 6 days. Head circumference 18.09 cm, age 20 weeks 4 days. Abdominal circumference 15.11 cm, age 20 weeks 3 days. Femur length 3.21 cm, age 20 weeks 0 days. Sonographic estimate age: 20 weeks 4 days. Sonographic estimated date of delivery: 12/27/20. Estimated Weight: 341 gm (+/- 50 gm). LMP percentile: 42%. heart rate: 144 beats per minute. number: 2 of 2. B anatomy that is visualized and normal: Urinary bladder, stomach, cerebral ventricles and brain, four-chamber heart, three-vessel cord, spine and umbilical cord insertion. Kidneys are not well-visualized. IMPRESSION: 1. Live twin gestation. Fetuses are fairly symmetric in size. 2. There is limited visualization of both of the twins kidneys. In fetus A, the intracranial contents and face were also not well seen. 3. Otherwise, anatomy survey for both twins is normal. Dictated by: Dictated on workstation # [id number]
== END ==
LOC: RAD 12:59
PROVIDERS: ATTEND Obstetrics & Gynecology
DX: O30.042 Twin pregnancy, dichorionic/diamniotic, second trimester (principal); Z3A.20 20 weeks gestation of pregnancy
CPT/HCPCS: 76805; 76810

== ENCOUNTER 2020-11-01 19:31 | Outpatient (CLI) | payer BC ==
[~2020-11-01] VITALS: Ht 172.7 cm; Wt 89.9 kg
[2020-11-01 19:55] VITALS: BP 115/82
[2020-11-01 20:07] LABS: BILIRUBIN,URINE NEGATIVE (NEGATIVE); CLARITY,URINE CLEAR; COLOR,URINE YELLOW; GLUCOSE, URINE (UA) NEGATIVE (NEGATIVE); KETONES,URINE NEGATIVE (NEGATIVE); LEUKOCYTE ESTERASE ,URINE TRACE (NEGATIVE); NITRITE,URINE NEGATIVE (NEGATIVE); PH,URINE 6.5 (5-9); PROTEIN,URINE NEGATIVE (NEGATIVE)
[2020-11-01 20:19] VITALS: BP 115/82
[2020-11-01 20:24] VITALS: BP 115/82
[2020-11-01 20:25] LABS: BACTERIA,URINE LARGE /HPF; WBC,URINE 0-2 /HPF
[2020-11-01 20:45] VITALS: BP 115/82
--- NOTE | 2020-11-02 01:21 | Physician Query-Final Dx ---
Clinic Account Progress/Dx Physician Query: Date of Service Nov 01, 2020 at 19:31 DIAGNOSIS: Diagnosis 31 week gestation Twins possible rupture of membranes, ruled out TADEO GRAHAM DO Nov 02, 2020 01:21
== END 2020-11-01 20:45 | disposition home or self-care (01) ==
LOC: WSo 19:31
PROVIDERS: ATTEND Obstetrics & Gynecology
DX: O99.891 Other specified diseases and conditions complicating pregnancy (principal); Z3A.31 31 weeks gestation of pregnancy
CPT/HCPCS: 81000; 87088; G0463; 99213

== ENCOUNTER 2020-12-09 16:20 | Inpatient (IN) | payer BC ==
[2020-12-09 16:55] VITALS: BP 139/86
--- NOTE | 2020-12-09 16:55 | History & Physical-OB ---
OB - Chief Complaint & HPI Date/Time Date of Admission: Date of Admission: December 09, 2020 at 4:20 pm Date seen by a Provider: December 09, 2020 Time Seen by a Provider: 16:50 Chief Complaint/History OB-Reason for Admission/Chief: Induction of Labor Hx : 1 Hx Para: 0 Expected Date of Delivery: Dec 29, 2020 Gestational Age in Weeks: 37 Gestational Age in Days: 1 Indication for induction: other Other reason for admission: Patient is 37.1 with di di twins. Presented to office today without complaint. US showed growth discordance B<A 18% and MVP <2 on fetus B. Patient sent for delivery. Vtx,Vtx presentation. Admission Nurse Assessment Rev: Yes History of Labs A pos Antibody neg RNI RPR NR HBsAg NR HIV NR GC neg GBS pos Allergies and Home Medications Allergies Coded Allergies: No Known Drug Allergies (Unverified , 10/10/10) Home Medications No Active Prescriptions or Reported Meds Patient Home Medication List Home Medication List Reviewed: Yes OB - History Hx of Present Care: Yes Ultrasounds: Abnormal US findings (Di DI twins, see HPI) Obstetrical Complications: None Medical Complications: None Delivery History Hx Blood Disorders: No Patient Past Medical History n/a Social History/Family History 2nd Hand Smoke Exposure: No Immunizations Date of Influenza Vaccine: May 03, 2020 OB - Admission Exam Physical Exam HEENT: NCAT Heart: Rhythm Normal Lungs: Clear Abdomen: Gravid Extremities: Normal Reflexes: Normal Cervical Dilatation: 1cm Effacement: 75% Station: -1 Membranes: Intact Heart Rate: 130's Accelerations: Accelerations Present Decelerations: No Decelerations Short Term Variability: Present Intermediate Variability: Average (6-25) Contractions on Admission: 6-10 Minutes Apart Intensity: Mild OB - Assessment/Plan/Diagnosis Assessment Assessment: induction of labor Admission Dx 25 yo @ 37 weeks Di di twin gestation Fetus B oligohydramnios GBS pos Admission Status: Inpatient Order (span 2 midnights) Reason for Inpatient Admission: IOL 37 week twins Plan Plan: Induction Induction Method: per Misoprostol Protocol Other Plan Start GBS prophylaxis BOB LEON DO December 09, 2020 4:55 pm
[2020-12-09] MEDS ORDERED: AMPICILLIN FOR IV USE 2,000 MG in WATER (STERILE) FOR INJECTION 14.8 ML IV NR (17:00)
[2020-12-09] MEDS: D5 LR IV SOLUTION 1,000 ML IV SCH ×2 (18:04→23:18)
[2020-12-09 18:18] LABS: BASOPHILS % (AUTO) 0 % (0-10); HEMOGLOBIN 13.3 g/dL (11.5-16.0)
[2020-12-09 18:20] LABS: EOSINOPHILS # (AUTO) 0.1 10^3/uL (0.0-0.3); EOSINOPHILS % (AUTO) 1 % (0-10); HEMATOCRIT 38 % (35-52); LYMPHOCYTES # (AUTO) 1.6 10^3/uL (1.0-4.0); LYMPHOCYTES % (AUTO) 16 % (12-44); MEAN CORPUSCULAR HEMOGLOBIN 32 pg (25-34); MEAN CORPUSCULAR HGB CONC 35 g/dL (32-36); MEAN CORPUSCULAR VOLUME 91 fL (80-99); MEAN PLATELET VOLUME 12.5 fL (9.0-12.2); MONOCYTES # (AUTO) 0.7 10^3/uL (0.0-1.0); MONOCYTES % (AUTO) 7 % (0-12); NEUTROPHILS # (AUTO) 7.3 10^3/uL (1.8-7.8); NEUTROPHILS % (AUTO) 75 % (42-75); PLATELET COUNT 134 10^3/uL (130-400); WHITE BLOOD COUNT 9.7 10^3/uL (4.3-11.0)
[2020-12-09 20:00] VITALS: BP 121/77
[2020-12-09 21:00] VITALS: BP 126/78
[2020-12-09 21:49] VITALS: BP 125/79
[2020-12-09 21:57] VITALS: BP 118/73
[2020-12-09 23:00] VITALS: BP 120/80
[2020-12-09] MEDS: AMPICILLIN FOR IV USE 1,000 MG in WATER (STERILE) FOR INJECTION 7.4 ML IV SCH (23:20)
[2020-12-10] VITALS (50 sets, daily range): BP systolic 114–154; BP diastolic 56–105
[2020-12-10] MEDS ORDERED: HYDROmorphone 2 MG/ML VIAL (DILAUDID) ONE (00:25)
[2020-12-10] MEDS ORDERED: HYDROmorphone 2 MG/ML VIAL (DILAUDID) IV ONE (00:30)
[2020-12-10] MEDS ORDERED: LACTATED RINGERS 1,000 ML IV ONE ×3 (02:53→04:00)
[2020-12-10] MEDS: AMPICILLIN FOR IV USE 1,000 MG in WATER (STERILE) FOR INJECTION 7.4 ML IV SCH ×3 (03:08→11:41)
[2020-12-10] MEDS ORDERED: fentaNYL 2 mcg/ml BUPIVA 0.125 100 ML ONE (03:22)
[2020-12-10] MEDS ORDERED: BUPIVACAINE 0.25% 30 ML (SENSORCAINE) VIAL ONE ×2 (03:42→10:11)
[2020-12-10] MEDS ORDERED: fentaNYL INJ 100 MCG/2 ML AMP ONE (03:42)
[2020-12-10] MEDS ORDERED: fentaNYL INJ 100 MCG/2 ML AMP INJ ONE (04:00)
[2020-12-10] MEDS ORDERED: ONDANSETRON 4 MG/2 ML (SDV) Z0FRAN IV PRN (04:00)
[2020-12-10] MEDS ORDERED: NALOXONE 0.4 MG/ML 1 ML (NARCAN) VIAL IV PRN (04:00)
[2020-12-10] MEDS: EPIDURAL (fentaNYL 2 MCG/ML BUPIVA 0.125%)100 ML BAG EPI PRN ×2 (04:10→10:08)
[2020-12-10] MEDS: D5 LR IV SOLUTION 1,000 ML IV SCH (07:59)
[2020-12-10] MEDS ORDERED: LIDOCAINE/EPI 2% 1:200,00 (XYLOCAINE) 20 ML VIAL ONE (09:24)
[2020-12-10] MEDS ORDERED: OXYTOCIN PRE-MIX DRIP 1,000 ML IV ONE (09:24)
[2020-12-10] MEDS ORDERED: PROMETHAZINE INJ 25 MG/ML (PHENERGAN) AMP IVP NR (12:30)
[2020-12-10] MEDS ORDERED: HYDROcodone/APAP 5 MG/325 MG (LORTAB) TAB PO PRN (15:00)
[2020-12-10] MEDS ORDERED: OXYTOCIN PRE-MIX DRIP 500 ML IV SCH (15:00)
[2020-12-10] MEDS ORDERED: DIBUCAINE 1% OINTMENT 30 GM TUBE TOP PRN (15:00)
[2020-12-10] MEDS ORDERED: TETANUS,DIPTH,PERTUSS P/F (BOOSTRIX) 0.5 ML VIAL IM ONE (15:00)
[2020-12-10] MEDS ORDERED: MEASLES,MUMPS,RUBELLA 1 EA INJ SQ ONE (15:00)
--- NOTE | 2020-12-10 15:04 | OB Labor & Delivery Record ---
L&D History Date of Service Date of Service: December 10, 2020 History Expected Date of Delivery: Dec 29, 2020 Gestational Age in Weeks: 37 Hx : 1 Hx Para: 0 Complications Events: Routine care (Di di twins, with male fetus MVP oligo) Operative Indications (Cesarea: N/A-Vaginal Delivery Intrapartal Events: None L&D Stage1 Stage One Onset of Labor - Date: December 10, 2020 Monitors and Tracing Monitor Mode: External Heart Rate: 125 Monitor Accelerations: Uniform Monitor Decelerations: None Station: 0 Landing Scaler Variability: Average (6-10) Short Term Variability: Present Presentation: Vertex Vital Signs VS - Last 72 Hours, by Label 12/09/20 12/09/20 12/09/20 12/09/20 16:55 16:55 20:00 21:00 Temp 37.3 37.3 36.3 Pulse 102 102 100 92 Resp 18 18 18 18 B/P (MAP) 139/86 (103) 121/77 (92) 126/78 (94) Pulse Ox 98 98 O2 Delivery Room Air Room Air Room Air Room Air 12/09/20 12/09/20 12/09/20 12/10/20 21:49 21:57 23:00 03:45 Temp 36.8 Pulse 78 80 77 77 Resp 18 18 18 18 B/P (MAP) 125/79 (94) 118/73 (88) 120/80 (93) 142/93 (109) O2 Delivery Room Air Room Air Room Air Room Air 12/10/20 12/10/20 12/10/20 12/10/20 04:00 04:02 04:05 04:07 Pulse 94 81 89 95 Resp 20 20 20 20 B/P (MAP) 148/99 (115) 154/105 (121) 152/79 (103) 148/71 (96) Pulse Ox 100 100 99 O2 Delivery Room Air Room Air Room Air Room Air 12/10/20 12/10/20 12/10/20 12/10/20 04:12 04:14 04:18 04:21 Temp 37.0 Pulse 84 81 84 83 Resp 20 20 20 20 B/P (MAP) 143/65 (91) 126/59 (81) 132/60 (84) 129/75 (93) Pulse Ox 99 99 99 99 O2 Delivery Room Air Room Air Room Air Room Air 12/10/20 12/10/20 12/10/20 12/10/20 04:24 04:30 04:34 04:40 Pulse 83 73 84 105 Resp 20 20 20 20 B/P (MAP) 128/71 (90) 114/71 (85) 134/68 (90) 132/67 (88) Pulse Ox 99 99 O2 Delivery Room Air Room Air Room Air Room Air 12/10/20 12/10/20 12/10/20 12/10/20 04:44 04:50 07:15 07:30 Pulse 89 68 96 100 Resp 20 20 18 18 B/P (MAP) 129/60 (83) 129/64 (85) 142/72 (95) Pulse Ox 98 O2 Delivery Room Air Room Air Room Air Room Air 12/10/20 12/10/20 12/10/20 12/10/20 07:45 08:00 08:15 08:30 Temp 36.8 Pulse 84 78 87 Resp 18 18 18 18 B/P (MAP) 131/82 (98) 128/86 (100) 122/79 (93) Pulse Ox 98 98 99 99 O2 Delivery Room Air Room Air Room Air Room Air 12/10/20 12/10/20 12/10/20 12/10/20 08:45 09:00 09:15 09:30 Pulse 76 76 80 80 Resp 18 18 18 18 B/P (MAP) 122/79 (93) 122/79 (93) 131/78 (95) 134/83 (100) Pulse Ox 99 99 99 97 O2 Delivery Room Air Room Air Room Air Room Air 12/10/20 12/10/20 12/10/20 12/10/20 09:45 10:00 10:15 10:30 Pulse 90 82 69 74 Resp 18 18 18 18 B/P (MAP) 129/84 (99) 139/71 (93) 131/72 (91) 138/84 (102) Pulse Ox 98 99 97 98 O2 Delivery Room Air Room Air Room Air Room Air 12/10/20 12/10/20 12/10/20 12/10/20 10:45 10:54 11:00 11:15 Temp 36.2 Pulse 66 76 66 Resp 18 18 18 B/P (MAP) 131/83 (99) 129/100 (110) 124/72 (89) Pulse Ox 99 99 99 O2 Delivery Room Air Room Air Room Air 12/10/20 12/10/20 12/10/20 12/10/20 11:30 11:45 12:00 12:15 Pulse 74 69 71 85 Resp 18 18 18 18 B/P (MAP) 123/79 (94) 134/88 (103) 142/91 (108) 140/94 (109) Pulse Ox 100 100 99 100 O2 Delivery Room Air Room Air Room Air Room Air Rupture of Membranes Spontaneous Ruture of Membrane: No Amniotic Membrane Rupture Time: 0752 Amniotic Membrane Fluid Desc.: Clear Vaginal Bleeding Description: Normal Show Progress/Notes Patient admitted for IOL last night was given 1 x dose of 100 mcg misoprostol PO, and started james regularly overnight. She received one dose of dilaudid overnight, followed by epidural placement. She progressed to complete and + 1 station, when position changes had to be implemented to facilitate delivery. In this progress fetus a FHR became tachycardic, however still continued to have moderate variability and accelerations. L&D Stage2 Stage Two Stage II Date: December 10, 2020 Monitors and Tracing Monitor Mode: External Heart Rate: 175 Monitor Accelerations: Uniform Monitor Decelerations: Variable Landing Scaler Variability: Average (6-10) Short Term Variability: Present Position: Right Occiput Anterior Signs of Distress by FHT Signs of Distress tachycardia and intermittent variables, fetus A Cord Descript/Complications Cord Vessel Description: 3 Vessels Delivery Type Delivery Method: Spontaneous Vaginal Episiotomy/Perineal Laceration Episiotomy Description: Vaginal Extension/lac, 1st degree Degree (describe repair) first degree vaginal laceration and bilateral periurethral lacerations repaired using 3-0 rapide in usual fashion. Condition of Infant Delivery Notes Baby A (Male) Apgars of 2/6/8, weight pending, Baby B (Female) Apgars 8/9, weight pending Condition of Condition of : Living Exam: No Observed Abnormalities Resuscitation Resuscitation: N/A - Spontaneous Resp, Oxygen Blowby (baby a) L&D Stage3 Stage Three Stage III Date: December 10, 2020 Pictocin Pitocin Administration mu/min: 4 Pitocin ml/hr: 4 Pitocin Administration Comment: 30 mu wide open at delivery of placneta Placenta Delivery Placenta Delivery: Spontaneous Delivery Summary Summary Estimated blood loss (mL): 400 Attending at delivery: Magnus Leon DO Condition of Delivery Examined: Cervix Examined, Uterus Explored Post Hemorrhage: No Condition of Mother stable Condition of (s) stable MAGNUS LEON DO December 10, 2020 15:04
[2020-12-10] MEDS: BENZOCAINE/MENTHOL (DERMOPLAST) 56 ML CAN TP PRN (15:17)
[2020-12-10] MEDS: IBUPROFEN 600 MG (MOTRIN) TAB PO SCH ×2 (15:17→20:27)
[2020-12-10] MEDS: WITCH HAZEL(TUCKS) 40 EA JAR TOP PRN (15:17)
[2020-12-10] MEDS: DOCUSATE SODIUM 100 MG (COLACE) CAP PO SCH (20:27)
[2020-12-10] MEDS ORDERED: CATHETER FLUSH 10 ML SYR IV SCH (22:00)
[2020-12-11] VITALS (7 sets, daily range): BP systolic 107–137; BP diastolic 57–94
[2020-12-11] MEDS: CATHETER FLUSH 10 ML SYR IV SCH ×2 (00:13→00:14)
[2020-12-11] MEDS: IBUPROFEN 600 MG (MOTRIN) TAB PO SCH ×4 (04:29→23:38)
[2020-12-11 06:09] LABS: BASOPHILS % (AUTO) 0 % (0-10); EOSINOPHILS % (AUTO) 0 % (0-10); HEMATOCRIT 29 % (35-52); HEMOGLOBIN 10.4 g/dL (11.5-16.0); LYMPHOCYTES # (AUTO) 1.7 10^3/uL (1.0-4.0); LYMPHOCYTES % (AUTO) 15 % (12-44); MEAN CORPUSCULAR HEMOGLOBIN 33 pg (25-34); MEAN CORPUSCULAR HGB CONC 35 g/dL (32-36); MEAN CORPUSCULAR VOLUME 93 fL (80-99); MEAN PLATELET VOLUME 12.5 fL (9.0-12.2); MONOCYTES # (AUTO) 0.8 10^3/uL (0.0-1.0); MONOCYTES % (AUTO) 7 % (0-12); NEUTROPHILS # (AUTO) 8.8 10^3/uL (1.8-7.8); NEUTROPHILS % (AUTO) 77 % (42-75); PLATELET COUNT 93 10^3/uL (130-400); WHITE BLOOD COUNT 11.4 10^3/uL (4.3-11.0)
[2020-12-11] MEDS: PRENATAL VITAMIN 1 EA TAB PO SCH (09:00)
[2020-12-11] MEDS: FERROUS SULF 325 MG (IRON) TAB PO SCH (09:00)
[2020-12-11] MEDS: DOCUSATE SODIUM 100 MG (COLACE) CAP PO SCH ×2 (09:00→19:51)
--- NOTE | 2020-12-11 09:01 | Postpartum Progress Note ---
Note Note Day # 1 Subjective: Patient is without complaints. Ambulating, voiding. Tolerating a regular diet without nausea or vomiting. Normal lochia. Pain is well controlled with oral pain medications. Objective: Physical Exam: General - Alert and oriented, no apparent distress Abdomen - Soft, appropriately tender to palpation, non-distended, fundus firm at umbilicus Extremities - no edema, negative Lexi's bilaterally Assessment: PPD 1 NVD Twin Gestation Acute blood loss anemia Plan: Routine care. Encourage breast feeding. Encourage ambulation. Ferrous sulfate supplementation. Plan for discharge tomorrow Vitals - Labs Vital Signs - I&O Vital Signs Date Time Temp Pulse Resp B/P (MAP) Pulse Ox O2 Delivery O2 Flow Rate FiO2 12/11/20 04:29 36.5 67 18 110/68 (82) 98 Room Air 12/11/20 00:15 36.5 82 18 107/57 (74) 98 Room Air 12/10/20 20:27 36.7 89 18 127/85 (99) 98 Room Air 12/10/20 17:30 37.1 12/10/20 16:30 37.2 76 120/67 (84) 98 Room Air 12/10/20 16:14 37.4 83 116/62 (80) 98 Room Air 12/10/20 16:00 78 137/56 (83) 98 Room Air 12/10/20 15:44 37.6 78 138/65 (89) 98 Room Air 12/10/20 15:29 83 134/68 (90) 100 Room Air 12/10/20 15:15 38.0 83 18 126/67 (86) 100 Room Air 12/10/20 15:00 38.5 95 18 139/74 (95) Room Air 12/10/20 14:50 104 150/89 (109) 12/10/20 14:15 91 18 143/72 (95) Room Air 12/10/20 14:00 95 18 140/86 (104) 100 Room Air 12/10/20 13:45 36.8 100 18 136/91 (106) 99 Room Air 12/10/20 13:30 109 18 100 Room Air 12/10/20 13:15 76 18 129/77 (94) 99 Room Air 12/10/20 13:00 74 18 115/69 (84) 99 Room Air 12/10/20 12:45 77 18 125/87 (100) 99 Room Air 12/10/20 12:30 79 18 134/80 (98) 100 Room Air 12/10/20 12:23 36.0 12/10/20 12:15 85 18 140/94 (109) 100 Room Air 12/10/20 12:00 71 18 142/91 (108) 99 Room Air 12/10/20 11:45 69 18 134/88 (103) 100 Room Air 12/10/20 11:30 74 18 123/79 (94) 100 Room Air 12/10/20 11:15 66 18 124/72 (89) 99 Room Air 12/10/20 11:00 76 18 129/100 (110) 99 Room Air 12/10/20 10:54 36.2 12/10/20 10:45 66 18 131/83 (99) 99 Room Air 12/10/20 10:30 74 18 138/84 (102) 98 Room Air 12/10/20 10:15 69 18 131/72 (91) 97 Room Air 12/10/20 10:00 82 18 139/71 (93) 99 Room Air 12/10/20 09:45 90 18 129/84 (99) 98 Room Air 12/10/20 09:30 80 18 134/83 (100) 97 Room Air 12/10/20 09:15 80 18 131/78 (95) 99 Room Air I & O 12/11/20 07:00 Intake Total 1000 ml Balance 1000 ml Labs Laboratory Tests 12/11/20 06:00: White Blood Count 11.4H, Red Blood Count 3.18L, Hemoglobin 10.4#L, Hematocrit 29 L, Mean Corpuscular Volume 93, Mean Corpuscular Hemoglobin 33, Mean Corpuscular Hemoglobin Concent 35, Red Cell Distribution Width 12.9, Platelet Count 93L, Mean Platelet Volume 12.5H, Immature Granulocyte % (Auto) 1, Neutrophils (%) (Auto) 77H, Lymphocytes (%) (Auto) 15, Monocytes (%) (Auto) 7, Eosinophils (%) (Auto) 0, Basophils (%) (Auto) 0, Neutrophils # (Auto) 8.8H, Lymphocytes # (Auto) 1.7, Monocytes # (Auto) 0.8, Eosinophils # (Auto) 0.0, Basophils # (Auto) 0.0, Immature Granulocyte # (Auto) 0.1 BOB LEON DO December 11, 2020 09:01
[2020-12-11] MEDS ORDERED: IBUP-844 PO (09:02)
[2020-12-11] MEDS ORDERED: BENZ78AE5 TP (09:02)
[2020-12-11] MEDS ORDERED: PNV1TABL67 PO (09:02)
[2020-12-11] MEDS ORDERED: FERR325T24 PO (09:02)
[2020-12-11] MEDS ORDERED: DCS100C PO (09:02)
[2020-12-11] MEDS ORDERED: ACHD5005 PO (09:02)
--- NOTE | 2020-12-11 09:03 | Discharge Inst-Women's Service ---
Discharge Inst-Women's Serv Depart Medication/Instructions New, Converted or Re-Newed RX: RX on Chart Final Diagnosis PPD 2 NVD Delivery, Twin , Acute blood loss anemia Problems Reviewed?: Yes Consults/Follow Up Additional Follow Up: Yes Orders/Referrals Dr. Leon in 6 weeks Activity Activity: Activity as Tolerated Driving Instructions: No Driving for 1 Week NO SMOKING: NO SMOKING Nothing Inside Vagina: No Douching, No Meggett, No Tampons Diet Discharge Diet: No Restrictions Symptoms to Report to : Bleeding Excessive, Pain Increased, Fever Over 101 Degrees F, Vaginal Bleeding Increase, Questions/Concerns For Any Problems or Questions: Contact Your Physician BOB LEON DO December 11, 2020 09:03
--- NOTE | 2020-12-11 09:16 | Anesthesia-Regional Post-Op ---
Regional Patient Condition Mental Status: Alert, Oriented x3 Circulation: Same as Pre-Op Headache: Absent Sensation: Full Recovery Motor Block: Absent Post Op Complications Complications None Follow Up Care/Instructions Patient Instructions None needed. Anesthesia/Patient Condition Patient is doing well, no complaints, stable vital signs, no apparent adverse anesthesia problems. No complications reported per nursing. [place] [facility] [place] MAHIN Sosa CRNA December 11, 2020 09:16
[2020-12-11] MEDS: WITCH HAZEL(TUCKS) 40 EA JAR TOP PRN (12:22)
[2020-12-12] MEDS: IBUPROFEN 600 MG (MOTRIN) TAB PO SCH ×3 (05:02→20:28)
[2020-12-12 05:05] VITALS: BP 124/81
--- NOTE | 2020-12-12 07:44 | Postpartum Progress Note ---
Note Note Day # 2 Subjective: Patient is without complaints. Ambulating, voiding. Tolerating a regular diet without nausea or vomiting. Normal lochia. Pain is well controlled with oral pain medications. Objective: Physical Exam: General - Alert and oriented, no apparent distress Abdomen - Soft, appropriately tender to palpation, non-distended, fundus firm at umbilicus Extremities - no edema, negative Lexi's bilaterally Assessment: PPD 2 NVD Twin Gestation Acute blood loss anemia Plan: Routine care. Encourage breast feeding. Encourage ambulation. Ferrous sulfate supplementation. Plan for discharge today Vitals - Labs Vital Signs - I&O Vital Signs Date Time Temp Pulse Resp B/P (MAP) Pulse Ox O2 Delivery O2 Flow Rate FiO2 12/12/20 05:05 36.6 71 16 124/81 (95) 98 Room Air 12/11/20 23:45 36.6 79 16 122/80 (94) 99 Room Air 12/11/20 19:52 36.5 79 18 125/85 (98) 98 Room Air 12/11/20 17:05 36.5 86 18 135/90 (105) 98 Room Air 12/11/20 13:00 36.5 85 18 137/94 (108) 99 Room Air 12/11/20 09:02 36.4 83 18 122/84 (97) 98 Room Air BOB LEON DO December 12, 2020 07:44
[2020-12-12 08:00] VITALS: BP 120/77
[2020-12-12] MEDS: PRENATAL VITAMIN 1 EA TAB PO SCH (10:27)
[2020-12-12] MEDS: DOCUSATE SODIUM 100 MG (COLACE) CAP PO SCH ×3 (10:27→20:28)
[2020-12-12] MEDS: FERROUS SULF 325 MG (IRON) TAB PO SCH (10:27)
[2020-12-12] MEDS ORDERED: ACETAMINOPHEN 500 MG TAB (TYLENOL) ONE (18:05)
[2020-12-12] MEDS: WITCH HAZEL(TUCKS) 40 EA JAR TOP PRN (18:15)
[2020-12-12] MEDS ORDERED: ACETAMINOPHEN 500 MG TAB (TYLENOL) PO ONE (18:15)
[2020-12-12] MEDS: BENZOCAINE/MENTHOL (DERMOPLAST) 56 ML CAN TP PRN (18:15)
[2020-12-12 20:27] VITALS: BP 117/68
== END 2020-12-12 20:30 | disposition home or self-care (01) | DRG 806 ==
LOC: LDRP 16:20 → WSo 16:23 → EDSTATUS 16:25 → LDRP 18:40
PROVIDERS: ADMIT Obstetrics & Gynecology; ATTEND Obstetrics & Gynecology
PROC: 3E0D7GC Introduction of Other Therapeutic Substance into Mouth and Pharynx, Via Natural or Artificial Opening (ICD-10-PCS; 2020-12-09)
PROC: 10E0XZZ Delivery of Products of Conception, External Approach (ICD-10-PCS; principal; 2020-12-10)
PROC: 0HQ9XZZ Repair Perineum Skin, External Approach (ICD-10-PCS; 2020-12-10)
PROC: 0UQMXZZ Repair Vulva, External Approach (ICD-10-PCS; 2020-12-10)
DX: O30.043 Twin pregnancy, dichorionic/diamniotic, third trimester (principal); O41.03X2 Oligohydramnios, third trimester, fetus 2; Z37.2 Twins, both liveborn; D62 Acute posthemorrhagic anemia; O70.0 First degree perineal laceration during delivery; O71.82 Other specified trauma to perineum and vulva; O90.81 Anemia of the puerperium; O99.824 Streptococcus B carrier state complicating childbirth; Z3A.37 37 weeks gestation of pregnancy
CPT/HCPCS: 36415; 85025; 86850; 86900; 86901

== ENCOUNTER → 2022-05-08 | Outpatient (CLI) | payer BC ==
[~2022-05-08] MED LIST changes: +ACHD5005 PO; +BENZ78AE5 TP; +DOCU-239 PO; +FERR325T24 PO; +IBUP-844 PO; +PNV1TABL67 PO
--- NOTE | 2022-05-08 21:10 | Diagnostic Imaging Report ---
INDICATION: anatomy survey TECHNIQUE: Multiple real-time grayscale images were obtained over the gravid uterus. COMPARISON: None FINDINGS: Live twin intrauterine gestation with dichorionic-diamniotic morphology. For the purpose of this dictation, fetus A is to maternal left. Fetus A: YASEMIN is 19.7 cm. Placenta is posterior. No previa is noted. heart rate is 142 bpm. Following anatomy seen and normal: Four-chamber heart, cerebral ventricles, cerebellar, cisterna magna, stomach, umbilical cord insertion, kidneys, urinary bladder, three-vessel cord, spine, profile, left ventricular outflow tract, right ventricular outflow tract. Fetus B: YASEMIN is normal at 19.7 cm. Anterior placenta without previa. heart rate is 133 bpm. Following an anatomy is visualized and normal: Cerebellum, cisterna magna, four-chamber heart, stomach, urinary bladder, umbilical cord insertion, kidneys, profile, spine, left ventricular outflow tract, right ventricular outflow tract. Biometrical measurements are as follows for fetus A (separate report for fetus B): Biparietal 4.95 cm, age 21 weeks 0 days. Head circumference 18.41 cm, age 20 weeks 6 days. Abdominal circumference 15.69 cm, age 20 weeks 6 days. Femur length 3.18 cm, age 20 weeks 0 days. Sonographic estimate age: 20 weeks 5 days. Sonographic estimated date of delivery: 09/20/2022. Estimated Weight: 356 gm (+/- 52 gm). LMP percentile: 72%. heart rate: 142 beats per minute. number: 1 of 2. IMPRESSION: 1. Live twin gestation has dichorionic-diamniotic morphology. 2. Normal anatomy survey for both fetuses. Dictated by: Dictated on workstation # [id number]
--- NOTE | 2022-05-09 14:12 | Diagnostic Imaging Report ---
INDICATION: anatomy survey TECHNIQUE: Multiple real-time grayscale images were obtained over the gravid uterus. COMPARISON: None FINDINGS: Live twin intrauterine gestation with dichorionic-diamniotic morphology. For the purpose of this dictation, fetus A is to maternal left. Fetus A: YASEMIN is 19.7 cm. Placenta is posterior. No previa is noted. heart rate is 142 bpm. Following anatomy seen and normal: Four-chamber heart, cerebral ventricles, cerebellar, cisterna magna, stomach, umbilical cord insertion, kidneys, urinary bladder, three-vessel cord, spine, profile, left ventricular outflow tract, right ventricular outflow tract. Fetus B: YASEMIN is normal at 19.7 cm. Anterior placenta without previa. heart rate is 133 bpm. Following an anatomy is visualized and normal: Cerebellum, cisterna magna, four-chamber heart, stomach, urinary bladder, umbilical cord insertion, kidneys, profile, spine, left ventricular outflow tract, right ventricular outflow tract. Biometrical measurements are as follows: Biparietal 5.14 cm, age 21 weeks 5 days. Head circumference 18.64 cm, age 21 weeks 0 days. Abdominal circumference 15.99 cm, age 21 weeks 1 days. Femur length 3.28 cm, age 20 weeks 2 days. Sonographic estimate age: 21 weeks 1 days. Sonographic estimated date of delivery: 09/17/22. Estimated Weight: 376 gm (+/- 55 gm). LMP percentile: 86%. heart rate: 172 beats per minute. number: 2 of 2. IMPRESSION: 1. Live twin gestation has dichorionic-diamniotic morphology. 2. Normal anatomy survey for both fetuses. Dictated by: Dictated on workstation # [id number]
== END ==
LOC: RAD 10:00
PROVIDERS: ATTEND Obstetrics & Gynecology
DX: O30.042 Twin pregnancy, dichorionic/diamniotic, second trimester (principal); Z3A.00 Weeks of gestation of pregnancy not specified
CPT/HCPCS: 76805; 76810

== ENCOUNTER 2022-08-29 15:58 | Inpatient (IN) | payer BC ==
[~2022-08-29] VITALS: Ht 176 cm; Wt 90.4 kg
[2022-08-29 17:30] VITALS: BP 128/85
[2022-08-29 17:41] VITALS: BP 131/79
--- NOTE | 2022-08-29 23:51 | History & Physical-OB ---
OB - Chief Complaint & HPI Date/Time Date of Admission: Date of Admission: Date seen by a Provider: Aug 29, 2022 Time Seen by a Provider: 11:48 Chief Complaint/History OB-Reason for Admission/Chief: Onset of Labor Hx : 3 Hx Para: 2 Expected Date of Delivery: Sep 25, 2022 Gestational Age in Weeks: 36 Gestational Age in Days: 1 Admission Nurse Assessment Rev: Yes History of Labs GBS pos urine, labor twin gestation Allergies and Home Medications Allergies Coded Allergies: No Known Drug Allergies (Unverified , 10/10/10) Patient Home Medication List Home Medication List Reviewed: Yes Benzocaine/Menthol (Dermoplast Pain Relieving Axis) 78 Gm Aerosol, 0 EA TP UD PRN for PAIN- SEE INSTRUCTIONS Prescribed by: BOB LEON on 12/11/20901 Docusate Sodium (Dok) 100 Mg Capsule, 100 MG PO BID PRN for CONSTIPATION-1ST LINE Prescribed by: BOB LEON on 12/11/20901 Ferrous Sulfate (Ferosul) 325 Mg Tablet, 325 MG PO DAILY@0800 Prescribed by: BOB LEON on 12/11/20901 Hydrocodone Bit/Acetaminophen (HYDROcodone/APAP 5 MG/325 MG TAB) 1 Tab Tab, 1 EA PO Q4H PRN for PAIN-MODERATE (5-7) Prescribed by: BOB LEON on 12/11/20901 Ibuprofen (Ibu) 600 Mg Tablet, 600 MG PO Q6H Prescribed by: BOB LEON on 12/11/20901 Pnv with Ca,No.72/Iron/FA (Pnv Plus Multivit Tab) 1 Each Tablet, 1 EA PO DAILY@0700 Prescribed by: BOB LEON on 12/11/20901 OB - History Hx of Present Care: Yes Ultrasounds: Normal mid trimester US Obstetrical Complications: Other (Twin gestation) Medical Complications: None Obstetrical History Hx : 3 Hx Para: 2 Hx Total # of Abortions (Spona: 1 Delivery History Hx Blood Disorders: No Patient Past Medical History n/a Social History/Family History Alcohol Use: Denies Use Recreational Drug Use: No 2nd Hand Smoke Exposure: No Immunizations Influenza Vaccine Up-to-Date: No; Not Current OB - Admission Exam Physical Exam Vitals: Vital Signs 08/29/22 08/29/22 17:30 17:41 Temp 36.8 Pulse 85 Resp 20 B/P (MAP) 131/79 (96) Pulse Ox 100 O2 Delivery Room Air HEENT: NCAT Heart: Rhythm Normal Lungs: Clear Abdomen: Gravid Extremities: Normal Reflexes: Normal Cervical Dilatation: 4cm Effacement: 75% Station: +1 Membranes: Intact Heart Rate: 130's Accelerations: Accelerations Present Decelerations: No Decelerations Short Term Variability: Present Porcelain Enamel Sprayer Variability: Average (6-25) Contractions on Admission: 6-10 Minutes Apart Intensity: Moderate OB - Assessment/Plan/Diagnosis Assessment Assessment: labor Admission Dx 27 yo @ 36.2 weeks Active labor -prolonged latent phase - patient 1 hr proximity to the hospital, sent in for observation with possible delivery given GBS pos status Admission Status: Inpatient Order (span 2 midnights) Reason for Inpatient Admission: 36.2 week Di Di twins labor Plan Plan: Expectant Management Other Plan Start gbs prophylaxis overnight Will augment labor in the AM BOB LEON DO Aug 29, 2022 23:51
[2022-08-30] VITALS (40 sets, daily range): BP systolic 95–158; BP diastolic 56–691
[2022-08-30] MEDS ORDERED: MINERAL OIL 30 ML UDC TOP PRN (03:30)
[2022-08-30] MEDS ORDERED: AMPICILLIN FOR IV USE 2,000 MG in NS (IVPB) 50 ML IV SCH (04:00)
[2022-08-30] MEDS: D5 LR IV SOLUTION 1,000 ML IV SCH ×2 (04:25→14:37)
[2022-08-30 04:44] LABS: BASOPHILS % (AUTO) 0 % (0-10); EOSINOPHILS # (AUTO) 0.2 10^3/uL (0.0-0.3); EOSINOPHILS % (AUTO) 2 % (0-10); HEMATOCRIT 37 % (35-52); HEMOGLOBIN 13.2 g/dL (11.5-16.0); LYMPHOCYTES # (AUTO) 2.1 10^3/uL (1.0-4.0); LYMPHOCYTES % (AUTO) 21 % (12-44); MEAN CORPUSCULAR HEMOGLOBIN 32 pg (25-34); MEAN CORPUSCULAR HGB CONC 35 g/dL (32-36); MEAN CORPUSCULAR VOLUME 91 fL (80-99); MEAN PLATELET VOLUME 10.8 fL (9.0-12.2); MONOCYTES # (AUTO) 0.6 10^3/uL (0.0-1.0); MONOCYTES % (AUTO) 6 % (0-12); NEUTROPHILS % (AUTO) 70 % (42-75); PLATELET COUNT 150 10^3/uL (130-400)
[2022-08-30] MEDS: AMPICILLIN FOR IV USE 1,000 MG in NS (IVPB) 50 ML IV SCH ×2 (08:33→12:18)
[2022-08-30] MEDS ORDERED: OXYTOCIN PRE-MIX DRIP 500 ML IV SCH (10:30)
[2022-08-30] MEDS ORDERED: ACETAMINOPHEN 500 MG TAB (TYLENOL) PO NR (10:30)
[2022-08-30] MEDS ORDERED: fentaNYL 2 mcg/ml BUPIVA 0.125 100 ML ONE (13:38)
[2022-08-30] MEDS ORDERED: fentaNYL INJ 100 MCG/2 ML AMP ONE (14:39)
[2022-08-30] MEDS ORDERED: KETAMINE 50 MG/5 ML SYRINGE ONE (16:44)
[2022-08-30] MEDS ORDERED: MIDAZOLAM 10 MG/2 ML (VERSED) VIAL ONE (16:48)
[2022-08-30] MEDS ORDERED: ONDANSETRON 4 MG/2 ML (SDV) Z0FRAN ONE (17:00)
[2022-08-30] MEDS ORDERED: proPOfol 200 MG/20 ML (DIPRIVAN) VIAL IV ONE (17:05)
[2022-08-30] MEDS ORDERED: OXYTOCIN PRE-MIX DRIP 500 ML IV ONE ×2 (17:05→17:20)
[2022-08-30] MEDS ORDERED: SUCCINYLCHOLINE INJ 20 MG/1 ML 10 ML VIAL ONE (17:05)
[2022-08-30] MEDS ORDERED: BUPIVACAINE 0.5% 30 ML (SENSORCAINE) VIAL ONE (17:25)
[2022-08-30] MEDS ORDERED: ROPIVACAINE 5MG/ML 30ML VIAL ONE (17:25)
[2022-08-30] MEDS ORDERED: LIDOCAINE PF 2% 5 ML (XYLOCAINE) VIAL ONE (17:25)
[2022-08-30] MEDS ORDERED: morphine INJ 10 MG/ML 1ML (SYR OR VIAL) IVP ONE (18:00)
[2022-08-30] MEDS ORDERED: ONDANSETRON 4 MG/2 ML (SDV) Z0FRAN IVP PRN (18:00)
[2022-08-30] MEDS ORDERED: MEPERIDINE (DEMEROL) INJ 50 MG/ML IVP ONE (18:00)
[2022-08-30] MEDS ORDERED: TETANUS,DIPTH,PERTUSS P/F (BOOSTRIX) 0.5 ML VIAL IM SCH (18:15)
[2022-08-30] MEDS ORDERED: NALOXONE 0.4 MG/ML 1 ML (NARCAN) VIAL IV PRN (18:15)
[2022-08-30] MEDS ORDERED: MEASLES,MUMPS,RUBELLA 1 EA INJ SC SCH (18:15)
[2022-08-30] MEDS ORDERED: ceFAZolin INJECTION 2,000 MG in NS (IVPB) 50 ML IV NR (18:15)
[2022-08-30] MEDS ORDERED: morphine INJ 10 MG/ML 1ML (SYR OR VIAL) ONE (18:31)
[2022-08-30] MEDS: KETOROLAC 30 MG/ML VIAL IVP PRN ×2 (18:42→23:45)
[2022-08-30] MEDS: OXYTOCIN PRE-MIX DRIP 500 ML IV SCH ×2 (20:11→23:45)
[2022-08-30] MEDS: DOCUSATE SODIUM 100 MG (COLACE) CAP PO SCH (20:22)
[2022-08-30] MEDS: HYDROcodone/APAP 5 MG/325 MG (LORTAB) TAB PO PRN (20:23)
[2022-08-30] MEDS ORDERED: CATHETER FLUSH 10 ML SYR IV SCH (22:00)
[2022-08-30] MEDS: CATHETER FLUSH 10 ML SYR IV SCH (23:19)
[2022-08-31 03:30] VITALS: BP 96/57
--- NOTE | 2022-08-31 04:42 | OPERATIVE REPORT ---
PREOPERATIVE DIAGNOSES: 1. A 27-year-old at 36 weeks' gestation with diamniotic dichorionic twin gestation. 2. Malpresentation of fetus B. 3. Acute distress of fetus B. POSTOPERATIVE DIAGNOSES: 1. A 27-year-old at 36 weeks' gestation with diamniotic dichorionic twin gestation. 2. Malpresentation of fetus B. 3. Acute distress of fetus B. PROCEDURE: Primary low transverse section. SURGEON: Magnus Leon DO ANESTHESIA: Epidural, which was bolused with sedation after delivery of the . EBL: 600 mL. URINE OUTPUT: 100 mL clear at the end of procedure. FLUIDS: 1400 mL lactated Ringer's solution. FINDINGS: A live male infant, weight pending, Apgars of 1, 4, and 6. Grossly normal appearing uterus, bilateral fallopian tubes. SPECIMENS SENT: ABG gases of 7.1, placenta. INDICATIONS FOR PROCEDURE: This 26-year-old female with the patient that arrived in early latent phase labor yesterday. Her labor was augmented this morning after GBS prophylaxis had been administered. AROM of fetus A was performed and she rapidly progressed to complete after receiving an epidural. Once complete, she was moved to the operating room where fetus A was delivered vaginally. This was done over an intact perineum. The nares and oropharynx were bulb suctioned at the time of delivery of the head, the left shoulder was the anterior shoulder and remainder of the infant was then brought out onto the mother's abdomen where the cord was doubly clamped and cut and we waited the descend presentation of fetus B. Bedside ultrasound was used to monitor fetus B and appeared to be a vertex presentation with the head presenting. On vaginal examination, the head could be easily palpated through the membranes at which point, spontaneous rupture occurred during vaginal check. At which point, bilateral hand presentation was noted as well as a partial cord prolapse; however, this was not being impinged upon as the head descended until the vertex reached approximately 0 station, at which point we began to have slow decrease in heart rate. This was confirmed with a scalp electrode, which was placed. I attempted on several tries due to maternal request for a vaginal delivery to reduce the hand and reduce the cord, however, due to distress and heart rate dropping down into the 50s, I discussed with the patient urgently proceed with . She was agreeable to this with verbal consent. DESCRIPTION OF PROCEDURE: The patient was immediately moved over to the operating room table where abdominal prep was quickly done and she was draped in the normal sterile fashion. After a count was performed, I proceeded with testing of anesthesia and there is limited pain noted with application of the Allis clamps to the skin. Therefore, I proceeded with making a skin incision with a knife and carried down to underlying fascia using the knife until the fascia was encountered, at which point I extended the fascial incision laterally using blunt traction. The rectus muscles were identified in the midline of the rectus muscles are bluntly dissected and using blunt traction, which allowed me to enter the peritoneum, which I entered using blunt traction and extended using blunt traction. An Jad ring retractor was placed within the peritoneal incision, which offered excellent lateral sidewall retraction. I then make a low transverse incision through the uterus until membranes were visualized, at which point I extended the uterus using blunt traction. The infant was found in the vertex presentation with gentle fundal pressure, the 's head was elevated to the incision where it was delivered through the incision. Anterior and posterior shoulders were delivered and the infant was brought to the operative field where the cord was doubly clamped and cut. was handed off to awaiting nurses and pediatricians in attendance. Cord blood and cord gases were collected. Intact placenta with 2 separate cords and 2 placentas were delivered all in one specimen and sent as twin placenta. The uterus was then exteriorized and cleared of all endometrial clots and debris, I then proceeded with closing the uterine incision using 0 Vicryl suture in a running locked fashion. Second layer of imbricating 0 Monocryl was placed. Excellent hemostasis was noted after doing this, I then placed the uterus back in the pelvis and copiously irrigated the pelvis using normal saline. Once again, no active bleeding noted from any of my dissection planes. I placed Interceed antiadhesive over my low transverse incision, I removed the Jad retractor and then proceeded with closing the peritoneum using 3-0 Vicryl suture in a running fashion. The rectus muscles were reapproximated using 3-0 Vicryl suture in interrupted fashion. The fascia was reapproximated using 0 Vicryl suture in a running fashion. Subcutaneous tissue was reapproximated using 3-0 plain interrupted subcutaneous stitch and skin reapproximated using 4-0 Monocryl in a running subcuticular. Dermabond was applied to incision and sterile dressing was adhesed with white tape. The patient tolerated the procedure well and was taken to recovery in stable condition. Lap and sponge counts were correct at the end of the procedure. Instrument counts correct as well. Two grams of Ancef were given intraoperatively for infection prophylaxis. Job ID: [id number] DocumentID: [id number] Dictated Date: 08/30/2022 18:20:58 Lead Cashier Date: 08/31/2022 04:40:00 Dictated By: MAGNUS LEON DO
[2022-08-31] MEDS: HYDROcodone/APAP 5 MG/325 MG (LORTAB) TAB PO PRN ×3 (06:51→23:05)
[2022-08-31] MEDS: KETOROLAC 30 MG/ML VIAL IVP PRN ×2 (06:51→12:16)
[2022-08-31 07:07] LABS: BASOPHILS % (AUTO) 0 % (0-10); EOSINOPHILS % (AUTO) 0 % (0-10); HEMATOCRIT 27 % (35-52); HEMOGLOBIN 9.5 g/dL (11.5-16.0); LYMPHOCYTES # (AUTO) 1.4 10^3/uL (1.0-4.0); LYMPHOCYTES % (AUTO) 11 % (12-44); MEAN CORPUSCULAR HEMOGLOBIN 33 pg (25-34); MEAN CORPUSCULAR HGB CONC 35 g/dL (32-36); MEAN CORPUSCULAR VOLUME 94 fL (80-99); MEAN PLATELET VOLUME 10.6 fL (9.0-12.2); MONOCYTES # (AUTO) 0.7 10^3/uL (0.0-1.0); MONOCYTES % (AUTO) 6 % (0-12); NEUTROPHILS # (AUTO) 10.4 10^3/uL (1.8-7.8); NEUTROPHILS % (AUTO) 83 % (42-75); PLATELET COUNT 133 10^3/uL (130-400); WHITE BLOOD COUNT 12.7 10^3/uL (4.3-11.0)
--- NOTE | 2022-08-31 07:25 | Postpartum Progress Note ---
Note Note Day # 1 Subjective: Patient is without complaints. Requesting discharge to be with twin B who was transferred to [place]. Ambulating, voiding. Tolerating a regular diet without nausea or vomiting. Normal lochia. Pain is well controlled with oral pain medications. Objective: Physical Exam: General - Alert and oriented, no apparent distress Abdomen - Soft, appropriately tender to palpation, non-distended, fundus firm at umbilicus Extremities - no edema, negative Lexi's bilaterally Assessment: PPD/POD 1 PLTCS Vaginal A/ delivery of B Acute blood loss anemia Plan: Routine care. Encourage breast feeding. Encourage ambulation. Ferrous sulfate supplementation. Plan for discharge today Vitals - Labs Vital Signs - I&O Vital Signs Date Time Temp Pulse Resp B/P (MAP) Pulse Ox O2 Delivery O2 Flow Rate FiO2 08/31/22 03:30 36.7 79 20 96/57 (70) 98 Room Air 08/30/22 23:45 36.8 90 18 117/67 (84) 97 Room Air 08/30/22 20:22 36.6 90 20 122/69 (86) 98 Room Air 08/30/22 18:40 36.8 88 20 103/65 (78) 98 Room Air 08/30/22 18:35 Room Air 08/30/22 18:20 36.5 14 114/77 (89) 98 Room Air 08/30/22 18:15 Room Air 08/30/22 18:10 12 115/76 (89) 99 Room Air 08/30/22 18:00 12 107/65 (79) 98 Room Air 08/30/22 18:00 Room Air 08/30/22 17:50 12 106/74 (85) 99 Room Air 08/30/22 17:45 Room Air 08/30/22 17:40 10 106/87 (93) 99 Room Air 08/30/22 17:32 Room Air 08/30/22 17:32 36.4 20 111/77 (88) 99 Room Air 08/30/22 16:33 37.0 102 20 158/691 (515) 100 Room Air 08/30/22 16:22 104 20 123/91 (102) Room Air 08/30/22 16:00 87 20 116/67 (83) 96 Room Air 08/30/22 15:55 89 20 141/98 (112) 100 Room Air 08/30/22 15:50 80 20 131/78 (95) 100 Room Air 08/30/22 15:45 72 20 96/56 (69) 100 Room Air 08/30/22 15:40 73 20 103/57 (72) 100 Room Air 08/30/22 15:35 75 20 95/57 (70) 100 Room Air 08/30/22 15:30 78 20 111/72 (85) 100 Room Air 08/30/22 15:25 76 20 113/74 (87) 100 Room Air 08/30/22 15:20 77 20 115/76 (89) 100 Room Air 08/30/22 15:15 78 20 114/74 (87) 99 Room Air 08/30/22 15:10 72 20 117/74 (88) 100 Room Air 08/30/22 15:00 78 20 106/57 (73) 99 Room Air 08/30/22 14:50 83 20 127/78 (94) 100 Room Air 08/30/22 14:45 77 20 131/72 (91) 100 Room Air 08/30/22 14:37 80 20 125/68 (87) 99 Room Air 08/30/22 14:35 79 20 136/75 (95) 100 Room Air 08/30/22 14:30 78 20 132/76 (94) 99 Room Air 08/30/22 14:25 72 20 138/79 (98) 100 Room Air 08/30/22 14:10 72 20 112/65 (81) 08/30/22 13:55 73 20 110/69 (83) 08/30/22 13:40 76 20 115/73 (87) 08/30/22 13:25 36.4 78 20 120/80 (93) 08/30/22 13:10 76 20 118/74 (89) 08/30/22 12:57 73 20 126/75 (92) 08/30/22 12:40 82 18 117/74 (88) 08/30/22 12:25 87 18 111/75 (87) 08/30/22 12:10 36.5 83 18 110/73 (85) 08/30/22 10:43 36.7 88 18 111/76 (88) I & O 08/31/22 07:00 Intake Total 1000 ml Output Total 50 ml Balance 950 ml Labs Laboratory Tests 08/31/22 05:38: White Blood Count 12.7H, Red Blood Count 2.92L, Hemoglobin 9.5#L, Hematocrit 27L , Mean Corpuscular Volume 94, Mean Corpuscular Hemoglobin 33, Mean Corpuscular Hemoglobin Concent 35, Red Cell Distribution Width 13.0, Platelet Count 133, Mean Platelet Volume 10.6, Immature Granulocyte % (Auto) 1, Neutrophils (%) (Auto) 83H, Lymphocytes (%) (Auto) 11L, Monocytes (%) (Auto) 6, Eosinophils (%) (Auto) 0, Basophils (%) (Auto) 0, Neutrophils # (Auto) 10.4H, Lymphocytes # (Auto) 1.4, Monocytes # (Auto) 0.7, Eosinophils # (Auto) 0.0, Basophils # (Auto) 0.0, Immature Granulocyte # (Auto) 0.1 BOB LEON DO Aug 31, 2022 07:25
[2022-08-31 08:00] VITALS: BP 107/57
[2022-08-31] MEDS: DOCUSATE SODIUM 100 MG (COLACE) CAP PO SCH ×2 (08:13→20:42)
--- NOTE | 2022-08-31 09:36 | Anesthesia-Regional Post-Op ---
Regional Patient Condition Mental Status: Alert, Oriented x3 Circulation: Same as Pre-Op Headache: Absent Sensation: Full Recovery Motor Block: Absent Post Op Complications Complications None Follow Up Care/Instructions Patient Instructions None needed. Anesthesia/Patient Condition Patient is doing well, no complaints, stable vital signs, no apparent adverse anesthesia problems. No complications reported per nursing. D/C home per [facility] [place]: Yes MAHIN KOO CRNA Aug 31, 2022 09:36
[2022-08-31] MEDS: buPROPion 75 MG (WELLBUTRIN) TAB PO SCH ×2 (11:07→20:42)
[2022-08-31 12:00] VITALS: BP 116/66
[2022-08-31] MEDS: IBUPROFEN 600 MG (MOTRIN) TAB PO PRN ×3 (12:15→23:05)
[2022-08-31 16:00] VITALS: BP 105/65
[2022-08-31] MEDS: SIMETHICONE 80 MG (MYLICON) CHEW PO SCH (22:03)
[2022-08-31 23:00] VITALS: BP 114/69
[2022-09-01 04:24] VITALS: BP 116/70
[2022-09-01] MEDS: IBUPROFEN 600 MG (MOTRIN) TAB PO PRN ×3 (04:24→17:31)
[2022-09-01] MEDS: buPROPion 75 MG (WELLBUTRIN) TAB PO SCH (09:09)
[2022-09-01] MEDS: DOCUSATE SODIUM 100 MG (COLACE) CAP PO SCH (09:09)
[2022-09-01] MEDS: SIMETHICONE 80 MG (MYLICON) CHEW PO SCH ×2 (09:09→14:00)
[2022-09-01] MEDS: HYDROcodone/APAP 5 MG/325 MG (LORTAB) TAB PO PRN ×2 (09:09→16:12)
--- NOTE | 2022-09-01 09:48 | Postpartum Progress Note ---
Note Note Day # 2 Subjective: Patient is without complaints. Ambulating, voiding. Tolerating a regular diet without nausea or vomiting. Normal lochia. Pain is well controlled with oral pain medications. Physical Exam: General - Alert and oriented, no apparent distress Abdomen - Soft, appropriately tender to palpation, non-distended, fundus firm at umbilicus; incision c/d/i Extremities - no edema, negative Lexi's bilaterally Assessment: Post- day # 2, status post vaginal delivery baby A/ delivery baby B Recovering well, hemodynamically stable Acute blood loss anemia Plan: Routine care. Encourage breast feeding. Encourage ambulation. Ferrous sulfate supplementation. Plan for discharge today or tomorrow Vitals - Labs Vital Signs - I&O Vital Signs Date Time Temp Pulse Resp B/P (MAP) Pulse Ox O2 Delivery O2 Flow Rate FiO2 09/01/22 04:24 36.4 72 20 116/70 (85) 98 Room Air 08/31/22 23:00 36.7 75 20 114/69 (84) 98 Room Air 08/31/22 16:00 37.0 77 14 105/65 (78) 100 Room Air 08/31/22 12:00 36.8 82 14 116/66 (83) 96 I & O 09/01/22 07:00 Intake Total 500 ml Balance 500 ml ASIF CUELLAR APRN Sep 01, 2022 09:48
[2022-09-01] MEDS ORDERED: ACHD5005 PO (09:52)
[2022-09-01] MEDS ORDERED: BENZ78AE5 TP (09:52)
[2022-09-01] MEDS ORDERED: DOCU100C37 PO (09:52)
[2022-09-01] MEDS ORDERED: IBUP-844 PO (09:52)
--- NOTE | 2022-09-01 09:54 | Discharge Inst-Women's Service ---
Discharge Inst-Women's Serv Depart Medication/Instructions New, Converted or Re-Newed RX: Transmitted to Pharmacy Consults/Follow Up Additional Follow Up: Yes (1wk incision check; 6wk appt) Activity Activity: Activity as Tolerated Driving Instructions: No Driving for 1 Week NO SMOKING: NO SMOKING Nothing Inside Vagina: No Douching, No [place], No Tampons Diet Discharge Diet: No Restrictions Symptoms to Report to DrBethel: Pain Increased, Fever Over 101 Degrees F, Vaginal Bleeding Increase For Any Problems or Questions: Contact Your Physician Skin/Wound Care Infection Signs and Symptoms: Increased Redness, Increased Drainage, Temperature Above 101 F Operative Area Clean and Dry: Keep Incision Clean/Dry Stitches/Lucy/Dermabond: Dermabond Bathing Instructions: ASIF Glover APRN Sep 01, 2022 09:54
[2022-09-01 10:05] VITALS: BP 113/66
[2022-09-01] MEDS ORDERED: BUPR-42 PO (11:30)
[2022-09-01 17:30] VITALS: BP 113/66
== END 2022-09-01 16:50 | disposition home or self-care (01) | DRG 786 ==
LOC: LDRP 15:58 → WSo 15:58 → LDRP 08-30 03:24 → WS 08-30 18:30
PROVIDERS: ADMIT Obstetrics & Gynecology; ATTEND Obstetrics & Gynecology
PROC: 10D00Z1 Extraction of Products of Conception, Low, Open Approach (ICD-10-PCS; principal; 2022-08-30 16:40)
DX: O30.043 Twin pregnancy, dichorionic/diamniotic, third trimester (principal); O60.14X2 Preterm labor third trimester with preterm delivery third trimester, fetus 2; D62 Acute posthemorrhagic anemia; Z3A.36 36 weeks gestation of pregnancy; Z37.2 Twins, both liveborn; O32.9XX2 Maternal care for malpresentation of fetus, unspecified, fetus 2; O90.81 Anemia of the puerperium; O99.824 Streptococcus B carrier state complicating childbirth
CPT/HCPCS: 36415; 85025; 86780; 86850; 86900; 86901; 90707